=== PATIENT | male | born 1950 | race Caucasian/White ===

== ENCOUNTER 2017-10-17 16:15 | Inpatient (IN) | payer MEDICARE, OTHER ==
--- NOTE | 2017-10-17 16:35 | ED ---
General Adult HPI - General Stated complaint: Low O2 Time Seen by Provider: 10/17/17 16:22 Source: RN notes reviewed, old records reviewed - History of Present Illness Initial comments: This is a 67-year-old male who is ER for evaluation of shortness of breath altered mental state. Patient's poor strain, per EMS transfer paperwork patient was found to be severely hypoxic in the low 70s, patient is complaining of generalized pain pain all over. No noted fevers - Related Data Home Medications Medication Instructions Recorded Confirmed Febuxostat [Uloric] 80 mg PO DAILY 12/19/13 10/17/17 Finasteride [Proscar] 5 mg PO DAILY 12/19/13 10/17/17 Insulin Glargine [Lantus] 30 units SQ DAILY 12/19/13 10/17/17 Omeprazole [PriLOSEC] 20 mg PO DAILY 12/19/13 10/17/17 Potassium Chloride [Potassium 40 meq PO BID 12/19/13 10/17/17 Chloride ER] Pravastatin Sodium [Pravachol] 80 mg PO HS 12/19/13 10/17/17 Propranolol [Inderal] 20 mg PO BID 12/19/13 10/17/17 Rivaroxaban [Xarelto] 20 mg PO HS 12/19/13 10/17/17 Tamsulosin [Flomax] 0.8 mg PO HS 12/19/13 10/17/17 Cholecalciferol [Vitamin D3] 3,000 unit PO DAILY 02/17/14 10/17/17 Primidone [Mysoline] 100 mg PO DAILY 02/17/14 10/17/17 Sertraline [Zoloft] 75 mg PO DAILY 02/17/14 10/17/17 Spironolactone [Aldactone] 25 mg PO DAILY 05/21/14 10/17/17 Acetaminophen Tab [Tylenol Tab] 650 mg PO Q4H PRN 10/17/17 10/17/17 Albuterol Nebulized [Ventolin 2.5 mg INHALATION RT-TID PRN 10/17/17 10/17/17 Nebulized] Ammonium Lactate Lotion 1 applic TOPICAL BID PRN 10/17/17 10/17/17 [Lac-Hydrin 12% Lotion] Benzocaine/Menthol Lozeng [Cepacol 1 lozenge MUCOUS MEM TID PRN 10/17/17 lozenge] Bisacodyl [Dulcolax] 10 mg RECTAL DAILY PRN 10/17/17 10/17/17 Cephalexin [Keflex] 500 mg PO Q8H 10/17/17 10/17/17 Furosemide [Lasix] 80 mg PO BID 10/17/17 10/17/17 INSULIN LISPRO (HumaLOG) [HumaLOG] 24 units SQ AC-SUPPER 10/17/17 10/17/17 INSULIN LISPRO (humaLOG) [humaLOG] 14 units SQ AC-BID 10/17/17 10/17/17 Mag Hydrox/Al Hydrox/Simeth 30 ml PO Q6H PRN 10/17/17 10/17/17 [Maalox] Magnesium Hydroxide [Milk of 2,400 mg PO ONCE PRN 10/17/17 10/17/17 Magnesia] Menthol [Biofreeze] 1 applic TOPICAL Q8H PRN 10/17/17 10/17/17 Metolazone [Zaroxolyn] 2.5 mg PO DAILY 10/17/17 10/17/17 Na Phos,M-B/Na Phos,Di-Ba [Fleet 133 ml RECTAL ONCE PRN 10/17/17 10/17/17 Adult] Polyethylene Glycol 3350 [Miralax] 17 gm PO DAILY PRN 10/17/17 10/17/17 Primidone [Mysoline] 50 mg PO DAILY 10/17/17 10/17/17 Topiramate [Topamax] 50 mg PO BID 10/17/17 10/17/17 Triamcinolone 0.5% Cream [Kenalog 1 applic TOPICAL BID PRN 10/17/17 10/17/17 0.5% Cream] diphenhydrAMINE [Benadryl] 25 mg PO Q6H PRN 10/17/17 10/17/17 fentaNYL 12MCG/HR PATCH [Duragesic 1 patch TRANSDERM Q72H 10/17/17 10/17/17 12MCG/HR] guaiFENesin SYRUP 100MG/5ML 200 mg PO Q4H PRN 10/17/17 10/17/17 [Robitussin] oxyCODONE-APAP 10-325MG [Percocet 1 tab PO DAILY 10/17/17 10/17/17 10-325 mg] oxyCODONE-APAP 10-325MG [Percocet 1 tab PO Q4HR PRN 10/17/17 10/17/17 10-325 mg] Previous Rx's Medication Instructions Recorded Pregabalin [Lyrica] 100 mg PO BID #20 capsule 02/21/14 Allergies Allergy/AdvReac Type Severity Reaction Status Date / Time acetaminophen [From [place]] Allergy Rash/Hives Verified 10/17/17 16:20 cephalexin monohydrate Allergy Rash/Hives Verified 10/17/17 16:36 [From Keflex] codeine Allergy Nausea & Verified 10/17/17 16:36 Vomiting hydrocodone bitartrate Allergy Rash/Hives Verified 10/17/17 16:36 [From [place]] Latex, Natural Rubber Allergy Rash/Hives Verified 10/17/17 16:36 levofloxacin [From Levaquin] Allergy Rash/Hives Verified 10/17/17 16:36 morphine Allergy Confusion Verified 10/17/17 16:36 Penicillins Allergy Anaphylaxis Verified 10/17/17 16:36 Sulfa (Sulfonamide Allergy Anaphylaxis Verified 10/17/17 16:36 Antibiotics) bitartrate Allergy Unknown Uncoded 10/17/17 16:20 Review of Systems ROS Statement: Those systems with pertinent positive or pertinent negative responses have been documented in the HPI. ROS Other: All systems not noted in ROS Statement are negative. Past Medical History Past Medical History: Atrial Fibrillation, Heart Failure, COPD, Diabetes Mellitus, Hyperlipidemia, Hypertension, Myocardial Infarction ([place]), Osteoarthritis (OA), Prostate Disorder, Renal Disease, Skin Disorder Additional Past Medical History / Comment(s): multipleUTI's/BLADDER INFECTION,, parkinsons/ TREMORS,ECZEMA, HAD A ANEURYSYM IN BACK OF LEFT EYE HAD SX. Hx [place] 2007 and had PTCA with stents.Pt occasionally constipated.bph,duodenal ulcer,djd , Last Myocardial Infarction Date:: 2007 History of Any Multi-Drug Resistant Organisms: None Reported Past Surgical History: Coronary Bypass/CABG, Heart Catheterization With Stent, Hernia Repair, Joint Replacement, Tonsillectomy Additional Past Surgical History / Comment(s): triple bypass 2007 lt leg vein harvested got cabg. lt hip replacement.ganglion cyst removed rt wrist/neck. left hip replacement,TRIPLE BYPASS,ganglion cyst removed, lt leg vein harvested for cabg sx, Past Anesthesia/Blood Transfusion Reactions: Postoperative Nausea & Vomiting ( PONV) Additional Past Anesthesia/Blood Transfusion Reaction / Comment(s): no history of blood transfusion Date of Last Stent Placement:: 2007 Smoking Status: Former smoker - Past Family History Father Family Medical History: CVA/TIA Additional Family Medical History / Comment(s): Father at age 79. Mother Additional Family Medical History / Comment(s): Mother at age 82. Mother had TB 1n 1952. General Exam Limitations: altered mental status General appearance: alert, anxious, lethargic Head exam: Present: atraumatic, normocephalic, normal inspection Eye exam: Present: normal appearance, PERRL, EOMI. Absent: scleral icterus, conjunctival injection, periorbital swelling ENT exam: Present: normal exam, mucous membranes moist Neck exam: Present: normal inspection. Absent: tenderness, meningismus, lymphadenopathy Respiratory exam: Present: normal lung sounds bilaterally, wheezes, accessory muscle use, decreased breath sounds, prolonged expiratory. Absent: respiratory distress, rales, rhonchi, stridor Cardiovascular Exam: Present: regular rate, normal rhythm, normal heart sounds. Absent: systolic murmur, diastolic murmur, rubs, gallop, clicks GI/Abdominal exam: Present: soft, normal bowel sounds. Absent: distended, tenderness, guarding, rebound, rigid Extremities exam: Present: normal inspection, full ROM, normal capillary refill. Absent: tenderness, pedal edema, joint swelling, calf tenderness Back exam: Present: normal inspection Neurological exam: Present: alert, oriented X3, CN II-XII intact Psychiatric exam: Present: normal affect, normal mood Skin exam: Present: warm, dry, intact, normal color. Absent: rash Course Vital Signs 10/17/17 10/17/17 16:20 17:33 Temperature 98.0 F Pulse Rate 69 68 Respiratory 18 18 Rate Blood Pressure 109/77 105/60 O2 Sat by Pulse 90 L 98 Oximetry - Reevaluation(s) Reevaluation #1: 10/17/17 18:18 No significant improvement here in the ER EKG Findings - EKG Comments: EKG Findings:: EKG shows A. fib rate of 66, QRS 82, QTc 461 Medical Decision Making - Medical Decision Making 67 male the ER for evaluation of altered mental state, hypoxia per outpatient oxygen levels, placed on oxygen with improvement breathing treatment further improvement in oxygen state but continues remain altered. Will admit for treatment of COPD and hypoxia - Lab Data Result diagrams: 10/17/17 16:42 10/17/17 16:42 Lab Results 10/17/17 10/17/17 10/17/17 Range/Units 16:42 16:42 16:42 WBC 6.9 (3.8-10.6) k/uL RBC 5.15 (4.30-5.90) m/uL Hgb 16.7 (13.0-17.5) gm/dL Hct 49.3 (39.0-53.0) % MCV 95.7 (80.0-100.0) fL MCH 32.3 (25.0-35.0) pg MCHC 33.8 (31.0-37.0) g/dL RDW 13.4 (11.5-15.5) % Plt Count 163 (150-450) k/uL Neutrophils % 64 % Lymphocytes % 20 % Monocytes % 7 % Eosinophils % 4 % Basophils % 1 % Neutrophils # 4.4 (1.3-7.7) k/uL Lymphocytes # 1.4 (1.0-4.8) k/uL Monocytes # 0.5 (0-1.0) k/uL Eosinophils # 0.3 (0-0.7) k/uL Basophils # 0.0 (0-0.2) k/uL PT (9.0-12.0) sec INR (<1.2) APTT (22.0-30.0) sec Sodium (137-145) mmol/L Potassium (3.5-5.1) mmol/L Chloride (98-107) mmol/L Carbon Dioxide (22-30) mmol/L Anion Gap mmol/L BUN (9-20) mg/dL Creatinine (0.66-1.25) mg/dL Est GFR (CKD-EPI)AfAm (>60 ml/min/1.73 sqM) Est GFR (CKD-EPI)NonAf (>60 ml/min/1.73 sqM) Glucose (74-99) mg/dL Plasma Lactic Acid Juan 1.5 (0.7-2.0) mmol/L Calcium (8.4-10.2) mg/dL Phosphorus (2.5-4.5) mg/dL Magnesium (1.6-2.3) mg/dL Total Bilirubin (0.2-1.3) mg/dL AST (17-59) U/L ALT (21-72) U/L Alkaline Phosphatase (38-126) U/L Ammonia <9 (<30) umol/L Total Creatine Kinase 40 L (55-170) U/L CK-MB (CK-2) 0.5 (0.0-2.4) ng/mL CK-MB (CK-2) Rel Index 1.3 Troponin I <0.012 (0.000-0.034) ng/mL Total Protein (6.3-8.2) g/dL Albumin (3.5-5.0) g/dL Urine Color Urine Appearance (Clear) Urine pH (5.0-8.0) Ur Specific [place] (1.001-1.035) Urine Protein (Negative) Urine Glucose (UA) (Negative) Urine Ketones (Negative) Urine Blood (Negative) Urine Nitrite (Negative) Urine Bilirubin (Negative) Urine Urobilinogen (<2.0) mg/dL Ur Leukocyte Esterase (Negative) 10/17/17 10/17/17 10/17/17 Range/Units 16:42 16:42 16:56 WBC (3.8-10.6) k/uL RBC (4.30-5.90) m/uL Hgb (13.0-17.5) gm/dL Hct (39.0-53.0) % MCV (80.0-100.0) fL MCH (25.0-35.0) pg MCHC (31.0-37.0) g/dL RDW (11.5-15.5) % Plt Count (150-450) k/uL Neutrophils % % Lymphocytes % % Monocytes % % Eosinophils % % Basophils % % Neutrophils # (1.3-7.7) k/uL Lymphocytes # (1.0-4.8) k/uL Monocytes # (0-1.0) k/uL Eosinophils # (0-0.7) k/uL Basophils # (0-0.2) k/uL PT 12.5 H (9.0-12.0) sec INR 1.3 H (<1.2) APTT 29.9 (22.0-30.0) sec Sodium 143 (137-145) mmol/L Potassium 3.6 (3.5-5.1) mmol/L Chloride 87 L (98-107) mmol/L Carbon Dioxide 40 H* (22-30) mmol/L Anion Gap 16 mmol/L BUN 72 H (9-20) mg/dL Creatinine 1.62 H (0.66-1.25) mg/dL Est GFR (CKD-EPI)AfAm 49 (>60 ml/min/1.73 sqM) Est GFR (CKD-EPI)NonAf 43 (>60 ml/min/1.73 sqM) Glucose 143 H (74-99) mg/dL Plasma Lactic Acid Juan (0.7-2.0) mmol/L Calcium 9.8 (8.4-10.2) mg/dL Phosphorus 3.4 (2.5-4.5) mg/dL Magnesium 2.7 H (1.6-2.3) mg/dL Total Bilirubin 0.5 (0.2-1.3) mg/dL AST 18 (17-59) U/L ALT 14 L (21-72) U/L Alkaline Phosphatase 85 (38-126) U/L Ammonia (<30) umol/L Total Creatine Kinase (55-170) U/L CK-MB (CK-2) (0.0-2.4) ng/mL CK-MB (CK-2) Rel Index Troponin I (0.000-0.034) ng/mL Total Protein 7.2 (6.3-8.2) g/dL Albumin 4.1 (3.5-5.0) g/dL Urine Color Yellow Urine Appearance Clear (Clear) Urine pH 6.0 (5.0-8.0) Ur Specific [place] 1.008 (1.001-1.035) Urine Protein Negative (Negative) Urine Glucose (UA) Negative (Negative) Urine Ketones Negative (Negative) Urine Blood Negative (Negative) Urine Nitrite Negative (Negative) Urine Bilirubin Negative (Negative) Urine Urobilinogen <2.0 (<2.0) mg/dL Ur Leukocyte Esterase Negative (Negative) - Radiology Data Radiology results: report reviewed (Chest x-rays negative), image reviewed Disposition Clinical Impression: Atypical chest pain, COPD (chronic obstructive pulmonary disease), Hypoxia, Altered mental state Disposition: ADMITTED IP TO THIS HOSP Condition: Fair Is patient prescribed a controlled substance at d/c from ED?: No Referrals: Fabrizio Lange DO [Primary Care Provider] - 1-2 days
[2017-10-17 17:02] LABS: Basophils % (A) 1 %; Eosinophils # (A) 0.3 k/uL (0-0.7); Eosinophils % (A) 4 %; HCT 49.3 % (39.0-53.0); HGB 16.7 gm/dL (13.0-17.5); Lymphocytes # (A) 1.4 k/uL (1.0-4.8); Lymphocytes % (A) 20 %; MCH 32.3 pg (25.0-35.0); MCHC 33.8 g/dL (31.0-37.0); MCV 95.7 fL (80.0-100.0); Mean Platelet Volume 9.1; Monocytes # (A) 0.5 k/uL (0-1.0); Monocytes % (A) 7 %; Neutrophils # (A) 4.4 k/uL (1.3-7.7); Neutrophils % (A) 64 %; Platelet Count 163 k/uL (150-450); RBC 5.15 m/uL (4.30-5.90); RDW 13.4 % (11.5-15.5); WBC 6.9 k/uL (3.8-10.6)
[2017-10-17 17:03] LABS: Appearance,Urine Clear (Clear); Bilirubin,Urine Negative (Negative); Blood,Urine Negative (Negative); Color,Urine Yellow; Glucose,Urine (UA) Negative (Negative); Ketones,Urine Negative (Negative); Leukocyte Esterase,Urine Negative (Negative); Nitrite,Urine Negative (Negative); Protein,Urine Negative (Negative); Specific Gravity,Urine 1.008 (1.001-1.035); Urobilinogen,Urine <2.0 mg/dL (<2.0)
[2017-10-17 17:08] LABS: INR 1.3 (<1.2); Partial Thromboplastin Time 29.9 sec (22.0-30.0); Prothrombin Time 12.5 sec (9.0-12.0)
[2017-10-17 17:17] LABS: Potassium 3.6 mmol/L (3.5-5.1)
[2017-10-17 17:18] LABS: Albumin 4.1 g/dL (3.5-5.0); Ammonia <9 umol/L (<30); Calcium 9.8 mg/dL (8.4-10.2); Lactic Acid, Venous 1.5 mmol/L (0.7-2.0); Magnesium 2.7 mg/dL (1.6-2.3); Phosphorus 3.4 mg/dL (2.5-4.5); Total Bilirubin 0.5 mg/dL (0.2-1.3); Total Protein 7.2 g/dL (6.3-8.2)
--- NOTE | 2017-10-17 17:22 | XR ---
EXAMINATION TYPE: XR chest 2V DATE OF EXAM: 10/17/2017 COMPARISON: 05/21/2014 HISTORY: Weakness TECHNIQUE: Frontal and lateral views of the chest are obtained. FINDINGS: There is no heart failure nor confluent pneumonic infiltrate. There are sternal wires. Cos tophrenic angles are clear. Thoracic aorta is atheromatous. The bony thorax is intact. There are ches t leads. IMPRESSION: There is minimal subsegmental atelectasis in the right midlung that is new compared to o ld exam. Normal heart. No heart failure.
[2017-10-17 17:26] LABS: Creatine Kinase 40 U/L (55-170)
[2017-10-17 17:38] LABS: Creatine Kinase MB 0.5 ng/mL (0.0-2.4); Troponin I <0.012 ng/mL (0.000-0.034)
[2017-10-17] MEDS ORDERED: methylPREDNISolone SOD SUCCI 125 MG/2 ML VIAL IV STA (18:15)
[2017-10-17] MEDS ORDERED: SODIUM CHLORIDE 0.9% 1,000 ML IV SCH (18:15)
[2017-10-17] MEDS ORDERED: IPRATROPIUM-ALBUTEROL 3 ML NEB INHALATION STA (18:17)
[2017-10-17] MEDS: IPRATROPIUM-ALBUTEROL 3 ML NEB INHALATION SCH (19:07)
[2017-10-17] MEDS ORDERED: BISACODYL 10 MG SUPP RECTAL PRN (20:14)
[2017-10-17] MEDS ORDERED: ACETAMINOPHEN TAB 325 MG TAB PO PRN (20:14)
[2017-10-17] MEDS ORDERED: AMMONIUM LACTATE 12% LOTION 225 GM BTL TOPICAL PRN (20:14)
[2017-10-17] MEDS ORDERED: TRIAMCINOLONE ACET 0.5% CREAM 15 GM TUBE TOPICAL PRN (20:14)
[2017-10-17 20:42] LABS: Glucose,Whole Blood 152 mg/dL (75-99)
[2017-10-17] MEDS ORDERED: RIVAROXABAN 20 MG TAB PO SCH (21:00)
[2017-10-17] MEDS: LACTATED RINGERS 1,000 ML IV SCH (21:18)
[2017-10-17] MEDS: TAMSULOSIN 0.4 MG CAP.ER.24H PO SCH (21:21)
[2017-10-17] MEDS ORDERED: INSULIN DETEMIR 100 UNIT/ML 10 ML VIAL SQ SCH (21:30)
[2017-10-17] MEDS ORDERED: ONDANSETRON 4 MG/2 ML VIAL IVP PRN (22:05)
[2017-10-17] MEDS ORDERED: CALCIUM CARBONATE 500 MG CHEWABLE PO PRN (22:05)
[2017-10-17] MEDS ORDERED: NALOXONE 0.4 MG/ML 1 ML VIAL IV PRN (22:05)
[2017-10-17] MEDS: INSULIN DETEMIR 100 UNIT/ML 10 ML VIAL SQ SCH (22:49)
--- NOTE | 2017-10-17 23:12 | HP ---
HISTORY AND PHYSICAL PRESENTING COMPLAINT: Lethargic. HISTORY OF PRESENTING COMPLAINT: This 67-year-old patient of Dr. Lange, resident of [facility] with chronic stable medical conditions include CHF, diabetes, GERD, hypertension, hyperlipidemia, osteoarthritis, gout, Parkinson's, coronary artery disease, BPH, gout, neuropathy, anxiety, and depression. The patient was sent in from the [facility]. The patient was found to be lethargic and had a pulse ox recorded at 60%, but then with 2 L it came above 90. The patient's chest x-ray in the ER did not show any evidence of CHF. The patient is rather lethargic. Does wake up to pain. No other additional history can be obtained. The patient was given some IV steroids in the ER. REVIEW OF SYSTEMS: The patient is rather lethargic. Cannot be obtained. PAST MEDICAL HISTORY: Atrial fibrillation, CHF, COPD, diabetes, GERD, hypertension, hyperlipidemia, osteoarthritis, gout, Parkinson's, coronary artery disease with stent in 2007, BPH, duodenal ulcer, gout, peripheral neuropathy, anxiety, depression. PAST SURGICAL HISTORY: Coronary bypass, cardiac cath with stent, hernia repair, joint replacement, tonsillectomy, triple bypass in 2007, bilateral hip replacement, ganglion cyst removed. HOME MEDICATIONS: 1. Percocet 10 mg 1 tab daily and q.4h p.r.n. 2. Guaifenesin syrup. 3. Fentanyl 12 patch every 72 hours. 4. Benadryl 25 mg q.6h p.r.n. 5. Kenalog 0.5% topical b.i.d. p.r.n. 6. Topamax 50 mg b.i.d. 7. Flomax 0.8 mg q.h.s. 8. Aldactone 25 mg a day. 9. Zoloft 75 mg a day. 10.Xarelto 20 mg q.h.s. 11.Inderal 20 mg b.i.d. 12.Mysoline 150 mg p.o. daily. 13.Lyrica 100 mg b.i.d. 14.Pravachol 80 mg q.h.s. 15.Potassium 40 mEq p.o. b.i.d. 16.MiraLAX 17 g p.o. daily p.r.n. 17.Prilosec 20 mg p.o. daily. 18.Fleets adult p.r.n. 19.Zaroxolyn 2.5 p.o. daily. 20.Biofreeze topical p.r.n. 21.Milk of magnesia. 22.Maalox 30 mg q.6h p.r.n. 23.Lantus 30 units subcu q.h.s. 24.Humalog 14 units b.i.d. and 24 with supper. 25.Lasix 80 mg b.i.d. 26.Proscar 5 mg p.o. daily. 27. 80 mg p.o. daily. 28.Vitamin D3 2000 units at 5:00 p.m. 29.Keflex 100 mg t.i.d. 30.Dulcolax p.r.n. 31.Cepacol Lac-Hydrin 12% topical b.i.d. p.r.n. 32.Ventolin 2.5 q.8 p.r.n. 33.Tylenol 650 mg q.4 p.r.n. ALLERGIES: ACETAMINOPHEN, KEFLEX, CODEINE, NORCO, LATEX, LEVAQUIN, MORPHINE, PENICILLIN, SULFA, BITARTRATE. PHYSICAL EXAMINATION: On examination vital signs on presentation, temperature 98.8, pulse 69, respiratory 18, blood pressure 109/77, pulse ox 98% on room air. GENERAL APPEARANCE: Well-built. BMI 41.5. Lethargic but arousable. EYES: Pupils equal. Conjunctivae normal. HEENT: External appearance of nose and ears normal. Oral cavity a bit dry. NECK: Short, JVD unable to assess. Mass not palpable. RESPIRATORY: Effort increased. LUNGS: Decreased breath sounds. No wheezing. CARDIOVASCULAR: Heart sounds irregular, nonpitting edema. ABDOMEN: Soft, nontender. Liver and spleen not palpable. LYMPHATICS: No lymph node palpable in the neck or axillae. PSYCHIATRY: Unable to assess. The patient is lethargic. NEUROLOGICAL: Pupils equal. No facial asymmetry. There is no asymmetrical loss of power. Plantars are equivocal. INVESTIGATIONS: White count 6.9, hemoglobin 16.7, platelets 163,000. Potassium 3.6, bicarb is 40, BUN 72, creatinine 1.62, magnesium 2.7, ammonia less than 9. Chest x-ray nil acute. EKG atrial fibrillation, rate controlled. ASSESSMENT: 1. This patient presents and felt to be lethargic, which probably is metabolic encephalopathy from patient being dry. The patient's bicarb is up to 40. The patient is also on Lyrica and Duragesic patch that could be contributing to the same. The patient has no focal symptoms. 2. Persistent atrial fibrillation chronically on anticoagulation in form of Xarelto. 3. Chronic congestive heart failure, ejection fraction not known. 4. Chronic obstructive pulmonary disease. 5. Diabetes type 2, chronically on insulin. 6. Gastroesophageal reflux disease. 7. Essential hypertension. 8. Hyperlipidemia. 9. Primary osteoarthritis. 10.Chronic gout. 11.Parkinson's disease. 12.Coronary artery disease with coronary bypass in 2007. 13.Benign prostatic hypertrophy. 14.Chronic gout. 15.Peripheral neuropathy from diabetes. 16.Anxiety, depression, not otherwise specified. 17.Morbid obesity, BMI 41.5. PLAN: At this point we will stop the patient's Solu-Medrol. We will hold off any Percocet. We will discontinue the Duragesic patch. In view of renal failure, this could be contributing. We will also stop the patient's Benadryl. The patient's Percocet, fentanyl and Benadryl have been discontinued. We will also hold off patient's diuretics including his Aldactone and Lasix. We will resume the patient's Lantus, although cut back the dose to 20 units and do sliding scale. We will do a CT scan of the brain to make sure there is no acute abnormality, although there is no focal symptoms. We will do fall precautions, neuro checks and keep an eye. There is no evidence of seizures. Given his age and multiple comorbidities, the patient's prognosis is guarded. MMODL / IJN: [id number] /
--- NOTE | 2017-10-17 23:49 | CT ---
EXAMINATION TYPE: CT brain wo con DATE OF EXAM: 10/17/2017 COMPARISON: NONE HISTORY: Lethargic. CT DLP: 1129.1 mGycm Automated exposure control for dose reduction was used. FINDINGS: There is cerebral cortical atrophy. There is no mass effect nor midline shift. There is no sign of in tracranial hemorrhage. The calvarium is intact. There is some white matter hypodensity in the left po sterior parietal lobe. IMPRESSION: CEREBRAL ATROPHY. NO ACUTE INTRACRANIAL ABNORMALITY. OLD LEFT POSTERIOR PARIETAL WHITE MATTER LACUNAR INFARCT. THIS MEASURES 2 X 1 CM.
[2017-10-18] MEDS ORDERED: methylPREDNISolone SOD SUCCI 125 MG/2 ML VIAL IV SCH
--- NOTE | 2017-10-18 00:05 | US ---
EXAMINATION TYPE: US venous doppler duplex LE DATE OF EXAM: 10/17/2017 11:02 PM COMPARISON: NONE CLINICAL HISTORY: r/o dvt. Bilateral leg swelling. SIDE PERFORMED: Bilateral TECHNIQUE: The lower extremity deep venous system is examined utilizing real time linear array sonog yaima with graded compression, doppler sonography and color-flow sonography. VESSELS IMAGED: External Iliac Vein (EIV) Common Femoral Vein Deep Femoral Vein Greater Saphenous Vein * Femoral Vein Popliteal Vein Exam limitations due to body habitus and unable to roll left leg. Right Leg: Negative for DVT Left Leg: Negative for DVT No evidence of DVT bilateral legs. IMPRESSION: Negative exam. No evidence of deep venous thrombosis in both legs.
[2017-10-18 06:18] LABS: Hemoglobin A1C 6.3 % (4.0-6.0)
[2017-10-18] MEDS: PANTOPRAZOLE 40 MG TABLET PO SCH (06:18)
[2017-10-18 06:58] LABS: Glucose,Whole Blood 213 mg/dL (75-99)
[2017-10-18 07:28] LABS: Creatine Kinase MB 0.4 ng/mL (0.0-2.4); Troponin I 0.015 ng/mL (0.000-0.034)
[2017-10-18] MEDS: INSULIN ASPART 100 UNIT/ML 1 ML 10 ML VIAL SQ SCH ×6 (07:44→17:56)
[2017-10-18] MEDS: TOPIRAMATE 25 MG TAB PO SCH ×2 (07:45→16:13)
[2017-10-18] MEDS: PREGABALIN 50 MG CAP PO SCH ×2 (07:45→16:13)
[2017-10-18] MEDS: FINASTERIDE 5 MG TAB PO SCH (07:45)
[2017-10-18] MEDS: PRIMIDONE 50 MG TAB PO SCH ×2 (07:45→16:13)
[2017-10-18] MEDS: PROPRANOLOL 20 MG TAB PO SCH ×2 (07:45→16:13)
[2017-10-18] MEDS: ALLOPURINOL 100 MG TAB PO SCH (07:45)
[2017-10-18] MEDS: SERTRALINE 25 MG TAB PO SCH (07:46)
[2017-10-18] MEDS ORDERED: PREGABALIN 100 MG CAP PO SCH (08:00)
[2017-10-18] MEDS: IPRATROPIUM-ALBUTEROL 3 ML NEB INHALATION SCH ×5 (08:46→20:17)
[2017-10-18] MEDS ORDERED: ALLOPURINOL 100 MG TAB PO SCH (09:00)
[2017-10-18] MEDS: oxyCODONE-APAP 10-325MG 1 EACH TAB PO PRN (10:04)
[2017-10-18 11:12] VITALS: BMI 36.1
[2017-10-18 11:36] LABS: Glucose,Whole Blood 338 mg/dL (75-99)
[2017-10-18] MEDS: LACTATED RINGERS 1,000 ML IV SCH ×2 (12:29→22:48)
--- NOTE | 2017-10-18 13:59 | P.CRDCN ---
History of Present Illness Consult date: 10/18/17 History of present illness: Mr. Cornell is a pleasant 67-year-old female past medical history significant for chronic persistent atrial fibrillaiton, coronary artery disease with subsequent bypass grafting, COPD, parkinsons, chronic lower extremity lymphedema, bed-ridden, diabetes mellitus, dyslipidemia, hypertension, gout and chronic kidney disease. He sees Dr. Velazquez in the office. We have been asked to see him in consultation for a run of non-sustained ventricular tachycardia. Telemetry tracings reviewed in the chart reveal what appears to be non- sustained VT, however when evaluating the full disclosure it appears to be artifact with no consistency through all precordial leads. The patient himself is somewhat of a poor historian. Documentation in the chart shows that he was undergoing a bladder scan and straight cath procedure at the time of the artifact. He denies symptoms of chest pain, shortness of breath, palpitations, dizziness, nausea, vomiting or diaphoresis. He is admitted to the hospital with acute metabolic encephalopathy. EKG is atrial fibrillation with nonspecifc changes and controlled ventricular response. Chest xray shows minimal atelectasis right mid-lung with no acute process and no heart failure. Brain CT shows cerebral atrophy with no acute process or abnormality with old lacunar infarct. Laboratory data reviewed, hemoglobin 16.7, platelets 163, sodium 143, potassium 3.6, CO2 40, creatinine 1.62, GFR 43, magnesium 2.7, cardiac enzymes negative 3. Current cardiac medications include Aldactone 25 mg daily, Xarelto 20 mg daily, propanolol 20 mg twice a day, pravastatin 80 mg daily, potassium supplementation 40 twice a day and Lasix 80 mg twice a day. Review of Systems At the time of my exam: CONSTITUTIONAL: Denies fever. Denies chills. EYES: Denies blurred vision. Denies vision changes. Denies eye pain. EARS, NOSE, MOUTH & THROAT: Denies headache. Denies sore throat. Denies ear pain. CARDIOVASCULAR: Denies chest pain. Denies shortness of breath. Denies orthopnea. Denies PND. Denies palpitations. RESPIRATORY: Denies cough. GASTROINTESTINAL: Denies abdominal pain. Denies diarrhea. Denies constipation. Denies nausea. Denies vomiting. MUSCULOSKELETAL: Denies myalgias. INTEGUMENTARY: Denies pruitis. Denies rash. NEUROLOGIC: Denies numbness. Denies tingling. Denies weakness. PSYCHIATRIC: Denies anxiety. Denies depression. ENDOCRINE: Denies fatigue. Denies weight change. Denies polydipsia. Denies polyurina. GENITOURINARY: Denies burning, hematuria or urgency with micturation. HEMATOLOGIC: Denies history of anemia. Denies bleeding. Past Medical History Past Medical History: Atrial Fibrillation, Heart Failure, COPD, Diabetes Mellitus, GERD/Reflux, Hyperlipidemia, Hypertension, Myocardial Infarction ([place]) , Osteoarthritis (OA), Prostate Disorder, Renal Disease, Skin Disorder Additional Past Medical History / Comment(s): gout multipleUTI's/BLADDER INFECTION,,parkinsons/ TREMORS,ECZEMA, HAD A ANEURYSYM IN BACK OF LEFT EYE HAD SX. Hx [place] 2007 and had PTCA with stents.Pt occasionally constipated.bph, duodenal ulcer,djd,gout,neuropathy Last Myocardial Infarction Date:: 2007 History of Any Multi-Drug Resistant Organisms: None Reported Past Surgical History: Coronary Bypass/CABG, Heart Catheterization With Stent, Hernia Repair, Joint Replacement, Tonsillectomy Additional Past Surgical History / Comment(s): triple bypass 2007 lt leg vein harvested got cabg. stevenson hip replacement.ganglion cyst removed rt wrist/neck.egd, . left hip replacement,TRIPLE BYPASS,ganglion cyst removed, lt leg vein harvested for cabg sx, Past Anesthesia/Blood Transfusion Reactions: Postoperative Nausea & Vomiting ( PONV) Additional Past Anesthesia/Blood Transfusion Reaction / Comment(s): no history of blood transfusion Date of Last Stent Placement:: 2007 Smoking Status: Former smoker - Past Family History Father Family Medical History: CVA/TIA Additional Family Medical History / Comment(s): Father at age 79. Mother Additional Family Medical History / Comment(s): Mother at age 82. Mother had TB 1n 1952. Medications and Allergies Home Medications Medication Instructions Recorded Confirmed Type Febuxostat [Uloric] 80 mg PO DAILY 12/19/13 10/17/17 History Finasteride [Proscar] 5 mg PO DAILY 12/19/13 10/17/17 History Insulin Glargine [Lantus] 30 units SQ HS@2130 12/19/13 10/17/17 History Omeprazole [PriLOSEC] 20 mg PO DAILY@0600 12/19/13 10/17/17 History Potassium Chloride [Potassium 40 meq PO BID 12/19/13 10/17/17 History Chloride ER] Pravastatin Sodium [Pravachol] 80 mg PO HS 12/19/13 10/17/17 History Propranolol [Inderal] 20 mg PO BID@08,17 12/19/13 10/17/17 History Rivaroxaban [Xarelto] 20 mg PO HS 12/19/13 10/17/17 History Tamsulosin [Flomax] 0.8 mg PO HS 12/19/13 10/17/17 History Cholecalciferol [Vitamin D3] 3,000 unit PO DAILY@1700 02/17/14 10/17/17 History Primidone [Mysoline] 100 mg PO DAILY 02/17/14 10/17/17 History Sertraline [Zoloft] 75 mg PO DAILY 02/17/14 10/17/17 History Spironolactone [Aldactone] 25 mg PO DAILY 05/21/14 10/17/17 History Acetaminophen Tab [Tylenol Tab] 650 mg PO Q4H PRN 10/17/17 10/17/17 History Albuterol Nebulized [Ventolin 2.5 mg INHALATION RT-Q8H PRN 10/17/17 10/17/17 History Nebulized] Ammonium Lactate Lotion 1 applic TOPICAL BID PRN 10/17/17 10/17/17 History [Lac-Hydrin 12% Lotion] Benzocaine/Menthol Lozeng [Cepacol 1 lozenge MUCOUS MEM TID PRN 10/17/17 History lozenge] Bisacodyl [Dulcolax] 10 mg RECTAL DAILY PRN 10/17/17 10/17/17 History Cephalexin [Keflex] 500 mg PO TID@06,14,10/17/17 10/17/17 History Furosemide [Lasix] 80 mg PO BID@,17 10/17/17 10/17/17 History INSULIN LISPRO (HumaLOG) [HumaLOG] 24 units SQ AC-SUPPER@1730 10/17/17 10/17/17 History INSULIN LISPRO (humaLOG) [humaLOG] 14 units SQ AC-BID@08,12 10/17/17 10/17/17 History Mag Hydrox/Al Hydrox/Simeth 30 ml PO Q6H PRN 10/17/17 10/17/17 History [Maalox] Magnesium Hydroxide [Milk of 2,400 mg PO ONCE PRN 10/17/17 10/17/17 History Magnesia] Menthol [Biofreeze] 1 applic TOPICAL Q8H PRN 10/17/17 10/17/17 History Metolazone [Zaroxolyn] 2.5 mg PO DAILY@0600 10/17/17 10/17/17 History Na Phos,M-B/Na Phos,Di-Ba [Fleet 133 ml RECTAL ONCE PRN 10/17/17 10/17/17 History Adult] Polyethylene Glycol 3350 [Miralax] 17 gm PO DAILY PRN 10/17/17 10/17/17 History Pregabalin [Lyrica] 100 mg PO BID@,10/17/17 10/17/17 History Primidone [Mysoline] 50 mg PO DAILY 10/17/17 10/17/17 History Topiramate [Topamax] 50 mg PO BID@,10/17/17 10/17/17 History Triamcinolone 0.5% Cream [Kenalog 1 applic TOPICAL BID PRN 10/17/17 10/17/17 History 0.5% Cream] diphenhydrAMINE [Benadryl] 25 mg PO Q6H PRN 10/17/17 10/17/17 History fentaNYL 12MCG/HR PATCH [Duragesic 1 patch TRANSDERM Q72H 10/17/17 10/17/17 History 12MCG/HR] guaiFENesin SYRUP 100MG/5ML 200 mg PO Q4H PRN 10/17/17 10/17/17 History [Robitussin] oxyCODONE-APAP 10-325MG [Percocet 1 tab PO DAILY 10/17/17 10/17/17 History 10-325 mg] oxyCODONE-APAP 10-325MG [Percocet 1 tab PO Q4HR PRN 10/17/17 10/17/17 History 10-325 mg] Allergies Allergy/AdvReac Type Severity Reaction Status Date / Time acetaminophen [From Tow] Allergy Rash/Hives Verified 10/18/17 04:50 cephalexin monohydrate Allergy Rash/Hives Verified 10/18/17 04:50 [From Keflex] codeine Allergy Nausea & Verified 10/18/17 04:50 Vomiting hydrocodone bitartrate Allergy Rash/Hives Verified 10/18/17 04:50 [From Tow] Latex, Natural Rubber Allergy Rash/Hives Verified 10/18/17 04:50 levofloxacin [From Levaquin] Allergy Rash/Hives Verified 10/18/17 04:50 morphine Allergy Confusion Verified 10/18/17 04:50 Penicillins Allergy Anaphylaxis Verified 10/18/17 04:50 Sulfa (Sulfonamide Allergy Anaphylaxis Verified 10/18/17 04:50 Antibiotics) bitartrate Allergy Unknown Uncoded 10/18/17 04:50 Physical Exam Vitals: Vital Signs Temp Pulse Pulse Resp BP BP Pulse Ox 10/18/17 05:40 98.4 F 72 16 110/67 94 L 10/17/17 22:50 96.8 F L 65 16 107/67 97 10/17/17 21:37 95 10/17/17 21:35 92 L 10/17/17 21:30 97 10/17/17 21:29 100 10/17/17 19:15 96.2 F L 72 16 140/81 99 10/17/17 18:47 62 16 10/17/17 18:42 98 F 69 18 129/87 96 10/17/17 18:35 59 L 14 10/17/17 18:24 58 L 16 96 10/17/17 17:33 68 18 105/60 98 10/17/17 16:20 98.0 F 69 18 109/77 90 L Intake and Output 10/17/17 10/18/17 10/18/17 22:59 06:59 14:59 Output Total 500 Balance -500 Output: Urine 500 Other: Voiding Method Diaper Incontinent # Voids 0 0 Weight 109.769 kg 95.5 kg 95.5 kg Blood pressure 110/67 heart rate 72 afebrile maintaining oxygen saturation on nasal cannula GENERAL: This is a 67-year-old male in no apparent distress at the time of my examination. HEENT: Head is atraumatic, normocephalic. Pupils are equal, round. Sclerae anicteric. Conjunctivae are clear. Mucous membranes of the mouth are moist. Neck is supple. There is no jugular venous distention. No carotid bruit is heard. LUNGS: Clear to auscultation no wheezes, rales or rhonchi. No chest wall tenderness is noted on palpation or with deep breathing. Diminished bilaterally. HEART: Irregular rate and rhythm without murmurs, rubs or gallops. S1 and S2 heard. ABDOMEN: Soft, nontender. Bowel sounds are heard. No organomegaly noted. EXTREMITIES: Bilateral lower extremity edema and no calf tenderness noted. VASCULAR: Radial and dorsalis pedis pulses palpated, no evidence of clubbing. NEUROLOGIC: Patient is awake, alert and oriented x3. Poor historian. Results 10/17/17 16:42 10/17/17 16:42 Cardiac Enzymes 10/17/17 10/17/17 10/18/17 Range/Units 16:42 16:42 06:38 AST 18 (17-59) U/L CK-MB (CK-2) 0.5 0.4 (0.0-2.4) ng/mL Troponin I <0.012 0.015 (0.000-0.034) ng/mL Coagulation 10/17/17 Range/Units 16:42 PT 12.5 H (9.0-12.0) sec APTT 29.9 (22.0-30.0) sec CBC 10/17/17 Range/Units 16:42 WBC 6.9 (3.8-10.6) k/uL RBC 5.15 (4.30-5.90) m/uL Hgb 16.7 (13.0-17.5) gm/dL Hct 49.3 (39.0-53.0) % Plt Count 163 (150-450) k/uL Comprehensive Metabolic Panel 10/17/17 Range/Units 16:42 Sodium 143 (137-145) mmol/L Potassium 3.6 (3.5-5.1) mmol/L Chloride 87 L (98-107) mmol/L Carbon Dioxide 40 H* (22-30) mmol/L BUN 72 H (9-20) mg/dL Creatinine 1.62 H (0.66-1.25) mg/dL Glucose 143 H (74-99) mg/dL Calcium 9.8 (8.4-10.2) mg/dL AST 18 (17-59) U/L ALT 14 L (21-72) U/L Alkaline Phosphatase 85 (38-126) U/L Total Protein 7.2 (6.3-8.2) g/dL Albumin 4.1 (3.5-5.0) g/dL Current Medications Generic Name Dose Route Start Last Admin Trade Name Freq PRN Reason Stop Dose Admin Acetaminophen 650 mg 10/17/17 20:14 Tylenol Tab PO Q4H PRN Fever and/ or Mild Pain Albuterol/Ipratropium 3 ml 10/17/17 20:00 10/18/17 11:42 Duoneb 0.5 Mg-3 Mg/3 Ml Soln INHALATION Not Given RT-QID MIKA Allopurinol 100 mg 10/18/17 09:00 10/18/17 07:45 Zyloprim PO 100 mg DAILY MIKA Administration Bisacodyl 10 mg 10/17/17 20:14 Dulcolax RECTAL DAILY PRN Constipation Calcium Carbonate/Glycine 1,000 mg 10/17/17 22:05 Tums PO Q4HR PRN Dyspepsia Finasteride 5 mg 10/18/17 09:00 10/18/17 07:45 Proscar PO 5 mg DAILY MIKA Administration Lactated Ringer's 1,000 mls @ 75 mls/hr 10/17/17 20:30 10/18/17 12:29 Lactated Ringers IV Not Given .[id number] ON LICENSE OF [facility] Insulin Aspart 14 unit 10/18/17 08:00 10/18/17 12:41 Novolog SQ 14 unit AC-BID@08,12 MIKA Administration Insulin Aspart 24 unit 10/18/17 17:30 Novolog SQ AC-SUPPER@1730 ON LICENSE OF [facility] Insulin Aspart 0 unit 10/18/17 07:30 10/18/17 12:41 Novolog SQ 9 unit AC-TID ON LICENSE OF [facility] Administration Protocol Insulin Detemir 20 unit 10/17/17 22:00 10/17/17 22:49 Levemir SQ Not Given HS ON LICENSE OF [facility] Lactic Acid 1 applic 10/17/17 20:14 Lac-Hydrin 12% TOPICAL BID PRN Dry Skin Naloxone HCl 0.2 mg 10/17/17 22:05 Narcan IV Q2M PRN Opioid Reversal Ondansetron HCl 4 mg 10/17/17 22:05 Zofran IVP Q8HR PRN Nausea And Vomiting Oxycodone/Acetaminophen 1 each 10/17/17 20:14 10/18/17 10:04 Percocet 10-325 PO 1 each Q4HR PRN Administration Severe Pain Pantoprazole Sodium 40 mg 10/18/17 06:00 10/18/17 06:18 Protonix PO 40 mg DAILY@0600 MIKA Administration Pregabalin 50 mg 10/18/17 08:00 10/18/17 07:45 Lyrica PO 50 mg BID@, MIKA Administration Primidone 50 mg 10/18/17 09:00 10/18/17 07:45 Mysoline PO 50 mg DAILY MIAK Administration Primidone 100 mg 10/18/17 17:00 Mysoline PO DAILY@1700 ON LICENSE OF [facility] Propranolol HCl 20 mg 10/18/17 08:00 10/18/17 07:45 Inderal PO 20 mg BID@ MIKA Administration Rivaroxaban 20 mg 10/17/17 21:00 10/17/17 21:21 Xarelto PO 20 mg HS MIKA Administration Sertraline HCl 75 mg 10/18/17 09:00 10/18/17 07:46 Zoloft PO 75 mg DAILY MIKA Administration Tamsulosin HCl 0.8 mg 10/17/17 21:00 10/17/17 21:21 Flomax PO 0.8 mg HS MIKA Administration Topiramate 50 mg 10/18/17 08:00 10/18/17 07:45 Topamax PO 50 mg BID@ ON LICENSE OF [facility] Administration Triamcinolone Acetonide 1 applic 10/17/17 20:14 Kenalog 0.5% Cream TOPICAL BID PRN Rash Intake and Output 10/17/17 10/18/17 10/18/17 22:59 06:59 14:59 Output Total 500 Balance -500 Output: Urine 500 Other: Voiding Method Diaper Incontinent # Voids 0 0 Weight 109.769 kg 95.5 kg 95.5 kg Patient Weight 10/19/17 06:59 Weight 95.5 kg 10/17/17 16:42 10/17/17 16:42 Assessment and Plan Assessment: ASSESSMENT 1. Metabolic encephalopathy 2. History of coronary artery disease s/p bypass grafting 3. Chronic persistent atrial fibrillation with controlled ventricular response on long-term anticoagulation with Xarelto 4. Hypertension 5. Dyslipidemia 6. Chronic b/l lower extremity lymphedema 7. Multiple co-morbid conditions. PLAN No evidence of ventricular tachycardia. Continue with medical therapy. Thank you kindly for this consultation. We will see the patient as needed. Nurse Practitioner note has been reviewed, I agree with a documented findings and plan of care. Patient was seen and examined.
--- NOTE | 2017-10-18 15:56 | ECHOF ---
Referral Reason:sob MEASUREMENTS -------- HEIGHT: 162.6 cm WEIGHT: 95.3 kg BP: 110/67 RVIDd: 2.9 cm (< 3.3) IVSd: 1.0 cm (0.6 - 1.1) LVIDd: 2.8 cm (3.9 - 5.3) LVPWd: 1.0 cm (0.6 - 1.1) IVSs: 1.3 cm LVIDs: 1.8 cm LVPWs: 1.3 cm LAESV Index (A-L): 31.71 ml/m Ao Diam: 3.2 cm (2.0 - 3.7) AV Cusp: 1.5 cm (1.5 - 2.6) LA Diam: 5.1 cm (2.7 - 3.8) MV E Ashish: 1.03 m/s MV DecT: 248 ms MV A Ashish: 0.00 m/s MV E/A Ratio: 440.75 RAP: 5.00 mmHg RVSP: 8.80 mmHg FINDINGS -------- Undetermined rhythm. This was a technically difficult study with suboptimal views. The left ventricular size is normal. Left ventricular wall thickness is normal. Overall left vent ricular systolic function is normal with, an EF between 55 - 60 %. The right ventricle is normal in size and function. Normal LA size by volume 22+/-6 ml/m2. The right atrium was not well visualized. 3ml of Lumason was utilized for enhancement of images. There is mild aortic valve sclerosis. There is no evidence of aortic regurgitation. There is no e vidence of aortic stenosis. The mitral valve was not well visualized. There is trace mitral regurgitation. Trace tricuspid regurgitation present. Right ventricular systolic pressure is normal at < 35 mmHg. There is no evidence of pulmonary hypertension. The pulmonic valve was not well visualized. The aortic root size is normal. Normal inferior vena cava with normal inspiratory collapse consistent with estimated right atrial pre ssure of 5 mmHg. There is no pericardial effusion. CONCLUSIONS -------- 1. Undetermined rhythm. 2. This was a technically difficult study with suboptimal views. 3. The left ventricular size is normal. 4. Left ventricular wall thickness is normal. 5. Overall left ventricular systolic function is normal with, an EF between 55 - 60 %. 6. Normal LA size by volume 22+/-6 ml/m2. 7. The right atrium was not well visualized. 8. 3ml of Lumason was utilized for enhancement of images. 9. There is mild aortic valve sclerosis. 10. The mitral valve was not well visualized. 11. There is trace mitral regurgitation. 12. Trace tricuspid regurgitation present. 13. Right ventricular systolic pressure is normal at < 35 mmHg. 14. There is no evidence of pulmonary hypertension. 15. The pulmonic valve was not well visualized. 16. The aortic root size is normal. 17. There is no pericardial effusion. PUBLIC INTERVIEWER: Trino Pruitt RDCS
[2017-10-18 17:32] LABS: Glucose,Whole Blood 227 mg/dL (75-99)
--- NOTE | 2017-10-18 20:13 | PN ---
PROGRESS NOTE DATE OF SERVICE: 10/18/2017 PRESENTING COMPLAINT: Lethargic. INTERVAL HISTORY: This patient presented with metabolic encephalopathy, acute renal failure. Patient's diuretics and pain medication, etc., were discontinued. When I saw the patient this morning he was actually a bit more awake, answering questions though tired. REVIEW OF SYSTEMS: Done for constitutional, cardiovascular, GI, pulmonary; relevant findings as above. Patient currently denies any pain. PHYSICAL EXAMINATION: Temperature 98.4, pulse 72, respiration 16, blood pressure 110/67, pulse ox 94% on 3 L. GENERAL APPEARANCE: Sitting up, more awake, less lethargic today. EYES: Pupils equal. Conjunctivae normal. HEENT: External appearance of nose and ears normal. Oral cavity a bit dry. NECK: JVD unable to assess. Mass not palpable. RESPIRATORY: Effort normal. LUNGS: Diminished breath sounds. CARDIOVASCULAR: Heart sounds irregular. Legs are swollen, but most of it appears to be non-pitting. PSYCHIATRY: Patient is able to answer some simple questions. INVESTIGATIONS: Accu-Cheks are noted. Magnesium 2.7. ASSESSMENT: 1. Acute metabolic encephalopathy, multifactorial, including from medications in a setting of renal failure, slow to respond. 2. Persistent atrial fibrillation, chronically on anticoagulation with Xarelto. 3. Chronic congestive heart failure, ejection fraction 55% to 60% per echocardiogram. 4. Chronic obstructive pulmonary disease. 5. Diabetes mellitus, type 2, chronically on insulin. 6. Gastroesophageal reflux disease. 7. Essential hypertension. 8. Hyperlipidemia. 9. Primary osteoarthritis. 10.Chronic gout. 11.Parkinson disease. 12.Coronary artery disease with coronary artery bypass in 2007. 13.Benign prostatic hypertrophy. 14.Peripheral neuropathy from diabetes. 15.Anxiety, depression not otherwise specified. 16.Morbid obesity with body mass index of 41.5. PLAN: Encourage oral intake. Will await BMP from today. Continue with gentle hydration. Keep an eye on the Accu-Cheks. MMODL / IJN: [id number] /
[2017-10-18 21:18] LABS: Calcium 9.7 mg/dL (8.4-10.2); Potassium 3.3 mmol/L (3.5-5.1)
[2017-10-18 22:04] LABS: Glucose,Whole Blood 164 mg/dL (75-99)
[2017-10-18] MEDS: INSULIN DETEMIR 100 UNIT/ML 10 ML VIAL SQ SCH (22:46)
[2017-10-18] MEDS: TAMSULOSIN 0.4 MG CAP.ER.24H PO SCH (22:47)
[2017-10-18] MEDS: RIVAROXABAN 15 MG TAB PO SCH (22:47)
[2017-10-19] MEDS: PANTOPRAZOLE 40 MG TABLET PO SCH (06:38)
[2017-10-19 07:29] LABS: Glucose,Whole Blood 101 mg/dL (75-99)
[2017-10-19] MEDS: INSULIN ASPART 100 UNIT/ML 1 ML 10 ML VIAL SQ SCH ×6 (07:30→17:40)
[2017-10-19] MEDS: IPRATROPIUM-ALBUTEROL 3 ML NEB INHALATION SCH ×5 (07:34→19:56)
[2017-10-19] MEDS: PRIMIDONE 50 MG TAB PO SCH ×2 (08:16→17:40)
[2017-10-19] MEDS: SERTRALINE 25 MG TAB PO SCH (08:16)
[2017-10-19] MEDS: ALLOPURINOL 100 MG TAB PO SCH (08:16)
[2017-10-19] MEDS: FINASTERIDE 5 MG TAB PO SCH (08:16)
[2017-10-19] MEDS: TOPIRAMATE 25 MG TAB PO SCH ×2 (08:16→17:40)
[2017-10-19] MEDS: PREGABALIN 50 MG CAP PO SCH ×2 (08:17→17:40)
[2017-10-19] MEDS: PROPRANOLOL 20 MG TAB PO SCH ×2 (08:17→17:40)
[2017-10-19 12:30] LABS: Glucose,Whole Blood 126 mg/dL (75-99)
[2017-10-19 12:39] LABS: Calcium 9.5 mg/dL (8.4-10.2)
[2017-10-19] MEDS ORDERED: Potassium Replacement Protocol 1 EACH MISC MISCELLANE PRN (13:10)
[2017-10-19] MEDS ORDERED: POTASSIUM CHLORIDE 10 MEQ in WATER FOR INJECTION 1 100ML.BAG IVPB SCH (13:15)
[2017-10-19] MEDS ORDERED: POTASSIUM CHLORIDE ER 20 MEQ TAB.ER PO STA (13:22)
[2017-10-19] MEDS: LACTATED RINGERS 1,000 ML IV SCH ×2 (14:09→18:12)
[2017-10-19] MEDS ORDERED: FUROSEMIDE 80 MG TAB PO SCH (16:30)
[2017-10-19 16:51] LABS: Glucose,Whole Blood 226 mg/dL (75-99)
--- NOTE | 2017-10-19 17:17 | PN ---
PROGRESS NOTE DATE OF SERVICE: October 19, 2017. PRESENTING COMPLAINT: Encephalopathy. INTERVAL HISTORY: This patient presented with encephalopathy from acute renal failure and medications. Diuretics were held. The patient is getting hydrated. The patient is more awake today. The patient legal guardian Gee Douglsa is here today. I spoke to him. The patient is looking better. Answering questions more appropriately. Did tolerate some diet. REVIEW OF SYSTEMS: Done for constitutional, cardiovascular, GI, pulmonary; relevant findings as above. CURRENT MEDICATIONS: Reviewed. EXAMINATION: Temperature 96.6, pulse 54, respirations 16, blood pressure 100/55, pulse ox 95% on 3 L. GENERAL APPEARANCE: Lying in bed, more awake today. EYES: Pupils are equal. Conjunctivae normal. HEENT: External appearance of nose and ears normal. Oral cavity normal. Neck: JVD unable to assess. Mass not palpable. Respiratory effort: Lungs decreased breath sounds. Cardiovascular: HEART: Sounds irregular. Mild edema present, including mainly nonpitting. Psychiatry: Answering questions more appropriately today. The patient could tell he is in the hospital, knows the year and the month. INVESTIGATIONS: Potassium 3, BUN 70, creatinine 1.35, bicarb is 35. ASSESSMENT: 1. Acute metabolic encephalopathy, multifactorial including from medications in the setting of renal failure improving. 2. Persistent atrial fibrillation chronically on anticoagulation Xarelto. 3. Chronic congestive heart failure. Ejection fraction 55-60% per echocardiogram. 4. Chronic obstructive pulmonary disease. 5. Diabetes mellitus type 2, chronically on insulin. 6. Gastroesophageal reflux disease. 7. Essential hypertension. 8. Hyperlipidemia. 9. Primary osteoarthritis. 10.Chronic gout. 11.Parkinson disease. 12.Coronary artery disease with history of coronary artery bypass 2007. 13.Benign prostatic hypertrophy. 14.Peripheral neuropathy from diabetes. 15.Anxiety, depression not otherwise specified. 16.Morbid obesity with a body mass index of 41.5. PLAN: At this point, we will continue to hydrate the patient. We will use Konrad wraps. The patient probably has an element of venous insufficiency. Care was discussed with the legal guardian at the bedside. We will replace patient's potassium. MMODL / IJN: [id number] /
[2017-10-19] MEDS: RIVAROXABAN 15 MG TAB PO SCH (21:38)
[2017-10-19] MEDS: TAMSULOSIN 0.4 MG CAP.ER.24H PO SCH (21:38)
[2017-10-19] MEDS: INSULIN DETEMIR 100 UNIT/ML 10 ML VIAL SQ SCH (21:39)
[2017-10-19 21:43] LABS: Glucose,Whole Blood 222 mg/dL (75-99)
[2017-10-20] MEDS: LACTATED RINGERS 1,000 ML IV SCH ×3 (04:31→14:46)
[2017-10-20] MEDS: NYSTATIN 100,000 UNIT/GM POWD 15 GM TOPICAL SCH ×2 (04:36→08:46)
[2017-10-20] MEDS: PANTOPRAZOLE 40 MG TABLET PO SCH (06:36)
[2017-10-20 06:59] LABS: Glucose,Whole Blood 142 mg/dL (75-99)
[2017-10-20 07:02] VITALS: BP 108/60; PULSE 67
[2017-10-20] MEDS: IPRATROPIUM-ALBUTEROL 3 ML NEB INHALATION SCH ×2 (07:41→10:52)
[2017-10-20 08:12] LABS: Calcium 9.2 mg/dL (8.4-10.2)
[2017-10-20 08:17] LABS: Potassium 2.9 mmol/L (3.5-5.1)
[2017-10-20] MEDS: TOPIRAMATE 25 MG TAB PO SCH (08:45)
[2017-10-20] MEDS: SERTRALINE 25 MG TAB PO SCH (08:45)
[2017-10-20] MEDS: PRIMIDONE 50 MG TAB PO SCH (08:45)
[2017-10-20] MEDS: ALLOPURINOL 100 MG TAB PO SCH (08:45)
[2017-10-20] MEDS: FINASTERIDE 5 MG TAB PO SCH (08:46)
[2017-10-20] MEDS: INSULIN ASPART 100 UNIT/ML 1 ML 10 ML VIAL SQ SCH ×4 (08:46→12:18)
[2017-10-20] MEDS: PREGABALIN 50 MG CAP PO SCH (08:46)
[2017-10-20] MEDS: PROPRANOLOL 20 MG TAB PO SCH (08:46)
[2017-10-20] MEDS: oxyCODONE-APAP 10-325MG 1 EACH TAB PO PRN (08:55)
[2017-10-20] MEDS: POTASSIUM CHLORIDE ER 20 MEQ TAB.ER PO SCH ×2 (10:49→12:17)
[2017-10-20] MEDS ORDERED: MAGNESIUM SULFATE-D5W PMX 1 GM in DEXTROSE/WATER 1 100ML.BAG IVPB ONE (11:00)
[2017-10-20 11:30] LABS: Glucose,Whole Blood 189 mg/dL (75-99)
[2017-10-20 14:33] LABS: Magnesium 2.9 mg/dL (1.6-2.3); Potassium 3.4 mmol/L (3.5-5.1)
[2017-10-20 15:28] VITALS: RESP 18; TEMP 98.7
--- NOTE | 2017-10-20 15:51 | DS ---
DISCHARGE SUMMARY DATE OF ADMISSION: 10/17/2017 DATE OF DISCHARGE: 10/20/2017 FINAL DIAGNOSES: 1. Acute metabolic encephalopathy, multifactorial, including from medication, in the setting of renal failure. 2. Persistent atrial fibrillation. Patient is chronically on Xarelto. 3. Chronic congestive heart failure. Ejection fraction 55% to 60% per echocardiogram. 4. Chronic obstructive pulmonary disease. 5. Diabetes mellitus, type 2, chronically on insulin. 6. Gastroesophageal reflux disease. 7. Essential hypertension. 8. Hyperlipidemia. 9. Primary osteoarthritis. 10.Chronic gout. 11.Parkinson's disease. 12.Coronary artery disease with history of coronary artery bypass in 2007. 13.Benign prostatic hypertrophy. 14.Peripheral neuropathy from diabetes. 15.Anxiety, depression not otherwise specified. 16.Morbid obesity with body mass index of 41.5. 17.Severe hypokalemia. HOSPITAL COURSE: This patient when he presented was rather lethargic, drowsy; felt to be severe metabolic encephalopathy. Patient's 2D echo showed preserved LV function. Several diuretics were discontinued. It is felt that a lot of his swelling of the lower extremities is probably from venous insufficiency. Patient's creatinine at the time of admission was 1.62. It did come down to 1.18. Potassium was 3.4 by the time of discharge. Patient woke up, was communicating. PHYSICAL EXAMINATION: LUNGS: Decreased breath sounds. Mild tremors. DISCHARGE MEDICATIONS: 1. Uloric 80 mg a day. 2. Proscar 5 mg a day. 3. Lantus 30 units subcutaneously at bedtime. 4. Prilosec 20 mg a day. 5. Pravachol 80 mg at bedtime. 6. Inderal 20 mg b.i.d. 7. Flomax 0.8 mg at bedtime. 8. Mysoline 100 mg p.o. daily. 9. Zoloft 75 mg p.o. daily. 10.Aldactone 25 mg daily. 11.Tylenol 650 mg q.4 p.r.n. 12.Lac-Hydrin 12% topically b.i.d. 13.Dulcolax 10 mg rectally daily p.r.n. 14.Maalox 30 mL q.6 p.r.n. 15.Milk of Magnesia 2400 mg p.r.n. 16.Menthol 1 application topically q.8 p.r.n. 17.Mysoline 50 mg p.o. daily. 18.Topamax 50 mg p.o. b.i.d. 19.Kenalog 0.5% one application topically b.i.d. p.r.n. 20.NovoLog 40 units b.i.d. and 24 units with supper. 21.DuoNeb t.i.d. 22.Mycostatin topically b.i.d. 23.Lyrica 50 mg b.i.d. 24.Xarelto 15 mg at bedtime. 25.Percocet 10 one tablet q.4 p.r.n. for pain. DISPOSITION: [facility]. Follow up with Dr. Soria at [facility]. Follow up with Dr. Lange after discharge from there. ADDITIONAL NOTE: Patient's legal guardian is Gee Salomon. CODE STATUS is FULL CODE. MMODL / IJN: [id number] /
== END 2017-10-20 15:56 | DRG 682 ==
LOC: EC 16:15 → 4MS4W 18:15
PROVIDERS: ADMIT Hospitalist; ATTEND Hospitalist
DX: N17.9 Acute kidney failure, unspecified (principal); G93.41 Metabolic encephalopathy; I13.0 Hypertensive heart and chronic kidney disease with heart failure and stage 1 through stage 4 chronic kidney disease, or unspecified chronic kidney disease; Z68.41 Body mass index [BMI] 40.0-44.9, adult; J44.9 Chronic obstructive pulmonary disease, unspecified; K21.9 Gastro-esophageal reflux disease without esophagitis; E11.42 Type 2 diabetes mellitus with diabetic polyneuropathy; E11.22 Type 2 diabetes mellitus with diabetic chronic kidney disease; I50.9 Heart failure, unspecified; E78.5 Hyperlipidemia, unspecified; M19.91 Primary osteoarthritis, unspecified site; M1A.9XX0 Chronic gout, unspecified, without tophus (tophi); G20 Parkinson's disease; I25.10 Atherosclerotic heart disease of native coronary artery without angina pectoris; N40.0 Benign prostatic hyperplasia without lower urinary tract symptoms; F32.9 Major depressive disorder, single episode, unspecified; F41.9 Anxiety disorder, unspecified; E66.01 Morbid (severe) obesity due to excess calories; E87.6 Hypokalemia; I48.2 Chronic atrial fibrillation; I89.0 Lymphedema, not elsewhere classified; I87.2 Venous insufficiency (chronic) (peripheral); N18.9 Chronic kidney disease, unspecified; R09.02 Hypoxemia; Z96.643 Presence of artificial hip joint, bilateral; Z79.899 Other long term (current) drug therapy; Z79.01 Long term (current) use of anticoagulants; Z87.11 Personal history of peptic ulcer disease; Z95.1 Presence of aortocoronary bypass graft; I25.2 Old myocardial infarction; Z79.4 Long term (current) use of insulin; Z87.891 Personal history of nicotine dependence; Z90.89 Acquired absence of other organs; Z87.19 Personal history of other diseases of the digestive system; Z88.5 Allergy status to narcotic agent; Z88.0 Allergy status to penicillin; Z88.2 Allergy status to sulfonamides; Z88.8 Allergy status to other drugs, medicaments and biological substances; Z88.6 Allergy status to analgesic agent; Z88.1 Allergy status to other antibiotic agents; Z91.040 Latex allergy status
CPT/HCPCS: 36415; 70450; 71046; 80048; 80053; 81003; 82140; 82550; 82553; 83036; 83605; 83735; 84100; 84132; 84484; 85025; 85610; 85730; 87086; 93005; 93306; 93970; 94760

== ENCOUNTER 2017-11-09 12:44 | Emergency (ER) | payer MEDICARE, OTHER ==
[2017-11-09 12:54] VITALS: RESP 18
[2017-11-09] MEDS ORDERED: SODIUM CHLORIDE 0.9% 500 ML IV STA (13:22)
[2017-11-09 13:38] LABS: Basophils % (A) 1 %; Eosinophils # (A) 0.2 k/uL (0-0.7); Eosinophils % (A) 3 %; HCT 47.8 % (39.0-53.0); HGB 16.4 gm/dL (13.0-17.5); Lymphocytes # (A) 1.2 k/uL (1.0-4.8); Lymphocytes % (A) 23 %; MCH 33.4 pg (25.0-35.0); MCHC 34.4 g/dL (31.0-37.0); MCV 97.1 fL (80.0-100.0); Mean Platelet Volume 7.7; Monocytes # (A) 0.4 k/uL (0-1.0); Monocytes % (A) 7 %; Neutrophils # (A) 3.5 k/uL (1.3-7.7); Neutrophils % (A) 65 %; Platelet Count 137 k/uL (150-450); RBC 4.93 m/uL (4.30-5.90); RDW 14.1 % (11.5-15.5); WBC 5.4 k/uL (3.8-10.6)
[2017-11-09 13:51] LABS: ALT 24 U/L (21-72); AST 20 U/L (17-59); Albumin 3.5 g/dL (3.5-5.0); Alkaline Phosphatase 68 U/L (38-126); Anion Gap 12 mmol/L; Blood Urea Nitrogen 12 mg/dL (9-20); Carbon Dioxide 28 mmol/L (22-30); Chloride 100 mmol/L (98-107); Glucose 128 mg/dL (74-99); Lipase 98 U/L (23-300); Potassium 3.7 mmol/L (3.5-5.1); Sodium 140 mmol/L (137-145); Total Bilirubin 0.8 mg/dL (0.2-1.3); Total Protein 6.1 g/dL (6.3-8.2)
--- NOTE | 2017-11-09 14:06 | CT ---
EXAMINATION TYPE: CT abdomen pelvis wo con DATE OF EXAM: 11/09/2017 COMPARISON: 01/06/2014 INDICATION: generalized pain DLP: 1189.3 mGycm, Automated exposure control for dose reduction was used. CONTRAST: 0 mL of Isovue 300. Study performed without Oral Contrast TECHNIQUE: Axial images were obtained from above the diaphragm to the pubic rami in the axial plane a t 5 mm thick sections. Reconstructed images are reviewed on the computer in the coronal plane. FINDINGS: Limited CT sections are obtained the lung bases. The lung bases are clear. Coronary artery calcific ation is present. There is elevation left diaphragm. CT ABDOMEN: Liver: Normal Spleen: Normal. Splenic artery calcification is noted. Pancreas: Fatty infiltration with atrophy. Adrenal glands: The adrenal glands are normal. Gallbladder: Normal Kidneys: No masses are evident. No hydronephrosis is present. No cysts are present. Several nonobs tructing renal stones are present on the left measuring approximately 3 mm each. A nonobstructing rig ht renal stones also measuring approximately 3 mm is present. No hydronephrosis or hydroureter is catie dent. Aorta: Vascular calcification is within the aorta. Inferior vena cava: Normal. CT PELVIS: There is limitation on the lower portion of the pelvis due to beam hardening artifact from bilateral hip prostheses. Loops of bowel within the abdomen and pelvis are normal. Study is without oral contrast limiting the evaluation. Appendix: Not identified. Note is dilated tubular structure inflammatory changes evident. Urinary bladder: Normal. Genitourinary structures: Prostate is poorly visualized Osseous structures: No suspicious lytic or sclerotic lesions. Bilateral hip prostheses are present. T his limits lower pelvic evaluation. Facet degenerative changes are within the lumbar spine. IMPRESSIONS: 1. Nonobstructing bilateral renal stones. 2. No suspicious abnormality to account for generalized abdominal pain
[2017-11-09] MEDS ORDERED: DOXYCYCLINE MONOHYDRATE 100 MG CAPSULE PO STA (15:55)
--- NOTE | 2017-11-09 15:58 | ED ---
Abdominal Pain HPI - General Chief Complaint: Abdominal Pain Stated Complaint: abdominal pain Time Seen by Provider: 11/09/17 12:48 Source: patient, EMS Mode of arrival: EMS Limitations: no limitations - History of Present Illness Initial Comments: 67 yo male with pmh as noted below presenting for evaluation of abdominal pain. States the pain has been present for the last 3 days without improvement. Had recent NGT tube placed for ulcer. Went to first and was then directed to the ED for further treatment and evaluation. ALso states lower extremity edema with discomfort and erythema. Concerned for cellulitis. Denies nausea, vomiting, fevers, chills, chest pain, shortness of breath. - Related Data Home Medications Medication Instructions Recorded Confirmed Febuxostat [Uloric] 80 mg PO DAILY 12/19/13 11/09/17 Finasteride [Proscar] 5 mg PO DAILY 12/19/13 11/09/17 Insulin Glargine [Lantus] 30 units SQ HS@2130 12/19/13 11/09/17 Omeprazole [PriLOSEC] 20 mg PO DAILY@0600 12/19/13 11/09/17 Pravastatin Sodium [Pravachol] 80 mg PO HS 12/19/13 11/09/17 Propranolol [Inderal] 20 mg PO BID@12/19/13 11/09/17 Tamsulosin [Flomax] 0.8 mg PO HS 12/19/13 11/09/17 Sertraline [Zoloft] 75 mg PO DAILY 02/17/14 11/09/17 Spironolactone [Aldactone] 25 mg PO DAILY 05/21/14 11/09/17 Ammonium Lactate Lotion 1 applic TOPICAL BID PRN 10/17/17 11/09/17 [Lac-Hydrin 12% Lotion] Bisacodyl [Dulcolax] 10 mg RECTAL DAILY PRN 10/17/17 11/09/17 Mag Hydrox/Al Hydrox/Simeth 30 ml PO Q6H PRN 10/17/17 11/09/17 [Maalox] Magnesium Hydroxide [Milk of 2,400 mg PO DAILY PRN 10/17/17 11/09/17 Magnesia] Topiramate [Topamax] 50 mg PO BID@,10/17/17 11/09/17 Triamcinolone 0.5% Cream [Kenalog 1 applic TOPICAL BID PRN 10/17/17 11/09/17 0.5% Cream] Gabapentin [Neurontin] 300 mg PO TID 11/09/17 11/09/17 Insulin Aspart [NovoLOG 14 unit SQ AC-TID 11/09/17 11/09/17 (formulary)] Ipratropium-Albuterol Nebulize 3 ml INHALATION RT-TID 11/09/17 11/09/17 [Duoneb 0.5 mg-3 mg/3 ml Soln] LORazepam [Ativan] 0.5 mg PO Q8H PRN 11/09/17 11/09/17 Menthol [Biofreeze] 1 applic TOPICAL Q6H PRN 11/09/17 11/09/17 Potassium Chloride [Klor-Con 20] 20 meq PO BID@,17 11/09/17 11/09/17 Pregabalin [Lyrica] 50 mg PO BID@,17 11/09/17 11/09/17 Previous Rx's Medication Instructions Recorded Nystatin 100,000 Unit/gm Powd 1 applic TOPICAL BID applic 10/20/17 [Mycostatin Powder] Rivaroxaban [Xarelto] 15 mg PO HS tab 10/20/17 oxyCODONE-APAP 10-325MG [Percocet 1 tab PO Q4HR PRN #14 tab 10/20/17 10-325 mg] Doxycycline Monohydrate [Monodox] 100 mg PO Q12HR #14 cap 11/09/17 Ondansetron Odt [Zofran Odt] 4 mg PO Q8HR PRN #7 tab 11/09/17 Allergies Allergy/AdvReac Type Severity Reaction Status Date / Time acetaminophen [From [place]] Allergy Rash/Hives Verified 11/09/17 13:24 cephalexin monohydrate Allergy Rash/Hives Verified 11/09/17 13:24 [From Keflex] codeine Allergy Nausea & Verified 11/09/17 13:24 Vomiting hydrocodone bitartrate Allergy Rash/Hives Verified 11/09/17 13:24 [From [place]] Latex, Natural Rubber Allergy Rash/Hives Verified 11/09/17 13:24 levofloxacin [From Levaquin] Allergy Rash/Hives Verified 11/09/17 13:24 morphine Allergy Confusion Verified 11/09/17 13:24 Penicillins Allergy Anaphylaxis Verified 11/09/17 13:24 Sulfa (Sulfonamide Allergy Anaphylaxis Verified 11/09/17 13:24 Antibiotics) bitartrate Allergy Unknown Uncoded 11/09/17 12:53 Review of Systems ROS Statement: Those systems with pertinent positive or pertinent negative responses have been documented in the HPI. ROS Other: All systems not noted in ROS Statement are negative. Constitutional: Denies: fever, chills Eyes: Denies: eye pain, vision change ENT: Denies: ear pain, throat pain Respiratory: Denies: cough, dyspnea Cardiovascular: Denies: chest pain, palpitations Endocrine: Denies: fatigue, polydipsia Gastrointestinal: Reports: abdominal pain. Denies: nausea, vomiting Genitourinary: Denies: urgency, dysuria Musculoskeletal: Denies: back pain, arthralgia, myalgia Skin: Reports: rash, change in color Neurological: Denies: headache, weakness Psychiatric: Denies: anxiety, depression Hematological/Lymphatic: Reports: easy bleeding, easy bruising Past Medical History Past Medical History: Atrial Fibrillation, Heart Failure, COPD, Diabetes Mellitus, GERD/Reflux, Hyperlipidemia, Hypertension, Myocardial Infarction ([place]) , Osteoarthritis (OA), Prostate Disorder, Renal Disease, Skin Disorder Additional Past Medical History / Comment(s): gout multipleUTI's/BLADDER INFECTION,,parkinsons/ TREMORS,ECZEMA, HAD A ANEURYSYM IN BACK OF LEFT EYE HAD SX. Hx [place] 2007 and had PTCA with stents.Pt occasionally constipated.bph, duodenal ulcer,djd,gout,neuropathy Last Myocardial Infarction Date:: 2007 History of Any Multi-Drug Resistant Organisms: None Reported Past Surgical History: Coronary Bypass/CABG, Heart Catheterization With Stent, Hernia Repair, Joint Replacement, Tonsillectomy Additional Past Surgical History / Comment(s): triple bypass 2007 lt leg vein harvested got cabg. stevenson hip replacement.ganglion cyst removed rt wrist/neck.egd, . left hip replacement,TRIPLE BYPASS,ganglion cyst removed, lt leg vein harvested for cabg sx, Past Anesthesia/Blood Transfusion Reactions: Postoperative Nausea & Vomiting ( PONV) Additional Past Anesthesia/Blood Transfusion Reaction / Comment(s): no history of blood transfusion Date of Last Stent Placement:: 2007 Past Psychological History: Anxiety, Depression Smoking Status: Former smoker Past Alcohol Use History: None Reported Past Drug Use History: None Reported - Past Family History Father Family Medical History: CVA/TIA Additional Family Medical History / Comment(s): Father at age 79. Mother Additional Family Medical History / Comment(s): Mother at age 82. Mother had TB 1n 1952. General Exam Limitations: no limitations General appearance: alert, in no apparent distress Head exam: Present: atraumatic, normocephalic Eye exam: Present: normal appearance, PERRL, EOMI ENT exam: Present: normal exam, normal oropharynx Neck exam: Present: normal inspection, full ROM. Absent: tenderness, meningismus Respiratory exam: Present: normal lung sounds bilaterally. Absent: respiratory distress, wheezes, rales, rhonchi, stridor Cardiovascular Exam: Present: regular rate, normal rhythm, normal heart sounds. Absent: systolic murmur, diastolic murmur, rubs, gallop, clicks GI/Abdominal exam: Present: soft, tenderness (generally), normal bowel sounds. Absent: distended, guarding, rebound, rigid Rectal exam: Present: deferred Extremities exam: Present: normal inspection, full ROM, normal capillary refill. Absent: tenderness, pedal edema, joint swelling, calf tenderness Back exam: Present: normal inspection Neurological exam: Present: alert, oriented X3, CN II-XII intact Psychiatric exam: Present: normal affect, normal mood Skin exam: Present: warm, dry, intact, erythema Course Vital Signs 11/09/17 11/09/17 11/09/17 12:46 13:52 15:13 Temperature 97.3 F L Pulse Rate 81 93 91 Respiratory 18 18 18 Rate Blood Pressure 161/91 173/84 163/86 O2 Sat by Pulse 96 100 98 Oximetry 11/09/17 16:43 Temperature 98.7 F Pulse Rate 93 Respiratory 18 Rate Blood Pressure 156/98 O2 Sat by Pulse 98 Oximetry Medical Decision Making - Medical Decision Making 67 yo male with pmh as above presenting for evaluation of abdominal pain and LE discoloration. On PE he appears to be in NAD with VSS. Abdomen is soft and tender without peritoneal signs of guarding, rigidity, or rebound. There is also erythema to the lower extremity with induration, concerning for cellulitis. Labs obtained which showed no significant abnormality. CT abdomen and pelvis non-specific. Pt given first dose of antibiotic in ED. Advised to follow up with PCP. Further given return instructions. He acknowledged an understanding of all information provided and agreed with this plan of care. - Lab Data Result diagrams: 11/09/17 13:27 11/09/17 13:27 Lab Results 11/09/17 11/09/17 11/09/17 Range/Units 13:27 13:27 13:27 WBC 5.4 (3.8-10.6) k/uL RBC 4.93 (4.30-5.90) m/uL Hgb 16.4 (13.0-17.5) gm/dL Hct 47.8 (39.0-53.0) % MCV 97.1 (80.0-100.0) fL MCH 33.4 (25.0-35.0) pg MCHC 34.4 (31.0-37.0) g/dL RDW 14.1 (11.5-15.5) % Plt Count 137 L (150-450) k/uL Neutrophils % 65 % Lymphocytes % 23 % Monocytes % 7 % Eosinophils % 3 % Basophils % 1 % Neutrophils # 3.5 (1.3-7.7) k/uL Lymphocytes # 1.2 (1.0-4.8) k/uL Monocytes # 0.4 (0-1.0) k/uL Eosinophils # 0.2 (0-0.7) k/uL Basophils # 0.0 (0-0.2) k/uL Sodium 140 (137-145) mmol/L Potassium 3.7 (3.5-5.1) mmol/L Chloride 100 (98-107) mmol/L Carbon Dioxide 28 (22-30) mmol/L Anion Gap 12 mmol/L BUN 12 (9-20) mg/dL Creatinine 0.80 (0.66-1.25) mg/dL Est GFR (CKD-EPI)AfAm >90 (>60 ml/min/1.73 sqM) Est GFR (CKD-EPI)NonAf >90 (>60 ml/min/1.73 sqM) Glucose 128 H (74-99) mg/dL Plasma Lactic Acid Juan 1.3 (0.7-2.0) mmol/L Calcium 10.0 (8.4-10.2) mg/dL Total Bilirubin 0.8 (0.2-1.3) mg/dL AST 20 (17-59) U/L ALT 24 (21-72) U/L Alkaline Phosphatase 68 (38-126) U/L Total Protein 6.1 L (6.3-8.2) g/dL Albumin 3.5 (3.5-5.0) g/dL Lipase 98 (23-300) U/L Disposition Clinical Impression: Cellulitis of lower extremity, Abdominal pain Disposition: HOME SELF-CARE Condition: Stable Instructions: Doxycycline (By mouth), Cellulitis (ED), Abdominal Pain (ED) Additional Instructions: Please use medication as discussed. Please follow up with family doctor if symptoms have not improved over the next two days. Please return to the emergency room if your symptoms increase or worsen or for any other concerns. Prescriptions: Doxycycline Monohydrate [Monodox] 100 mg PO Q12HR #14 cap Ondansetron Odt [Zofran Odt] 4 mg PO Q8HR PRN #7 tab PRN Reason: Nausea Is patient prescribed a controlled substance at d/c from ED?: No Referrals: Nonstaff,Physician [Primary Care Provider] - 1-2 days Jak Cooper MD [STAFF PHYSICIAN] - 1-2 days Time of Disposition: 15:58
[2017-11-09 16:44] VITALS: BP 156/98; PULSE 93; TEMP 98.7
== END 2017-11-09 17:26 | disposition home or self-care (01) ==
LOC: EC 12:44
DX: L03.119 Cellulitis of unspecified part of limb (principal); R10.9 Unspecified abdominal pain; I48.91 Unspecified atrial fibrillation; I13.0 Hypertensive heart and chronic kidney disease with heart failure and stage 1 through stage 4 chronic kidney disease, or unspecified chronic kidney disease; I50.9 Heart failure, unspecified; E11.22 Type 2 diabetes mellitus with diabetic chronic kidney disease; N18.9 Chronic kidney disease, unspecified; E11.40 Type 2 diabetes mellitus with diabetic neuropathy, unspecified; K21.9 Gastro-esophageal reflux disease without esophagitis; E78.5 Hyperlipidemia, unspecified; I25.2 Old myocardial infarction; J44.9 Chronic obstructive pulmonary disease, unspecified; M10.9 Gout, unspecified; F41.9 Anxiety disorder, unspecified; F32.9 Major depressive disorder, single episode, unspecified; Z87.438 Personal history of other diseases of male genital organs; Z95.5 Presence of coronary angioplasty implant and graft; Z95.1 Presence of aortocoronary bypass graft; Z96.643 Presence of artificial hip joint, bilateral; Z87.891 Personal history of nicotine dependence; Z79.4 Long term (current) use of insulin; Z79.899 Other long term (current) drug therapy; Z88.6 Allergy status to analgesic agent; Z88.1 Allergy status to other antibiotic agents; Z88.5 Allergy status to narcotic agent; Z91.040 Latex allergy status; Z88.0 Allergy status to penicillin; Z88.2 Allergy status to sulfonamides; Z88.8 Allergy status to other drugs, medicaments and biological substances
CPT/HCPCS: 36415; 74176; 80053; 83605; 83690; 85025; 99284

== ENCOUNTER 2017-12-22 22:13 | Emergency (ER) | payer MEDICARE, OTHER ==
[2017-12-22] MEDS ORDERED: SODIUM CHLORIDE 0.9% 500 ML IV STA (22:14)
--- NOTE | 2017-12-22 22:22 | ED ---
General Adult HPI - General Stated complaint: Rectal bleeding Time Seen by Provider: 12/22/17 22:15 Source: RN notes reviewed - History of Present Illness Initial comments: This is a 67-year-old male with a past medical history significant for GI bleed. Patient was sent in today because 11:00 this morning they noted some blood with his stool in though he has not had any more blood with his stool they sent a minute at 10:00 tonight because of the earlier bleeding. Patient has no complaint. Patient complains of diffuse mild abdominal pain patient denies diarrhea or vomiting. Patient denies any chest pain or difficulty breathing shortest breath per patient denies any headache patient denies numbness weakness. Patient is on Xarelto. - Related Data Home Medications Medication Instructions Recorded Confirmed Finasteride [Proscar] 5 mg PO DAILY 12/19/13 12/22/17 Omeprazole [PriLOSEC] 20 mg PO DAILY@0600 12/19/13 12/22/17 Pravastatin Sodium [Pravachol] 80 mg PO HS 12/19/13 12/22/17 Propranolol [Inderal] 20 mg PO BID@12/19/13 12/22/17 Tamsulosin [Flomax] 0.8 mg PO HS 12/19/13 12/22/17 Sertraline [Zoloft] 75 mg PO DAILY 02/17/14 12/22/17 Spironolactone [Aldactone] 25 mg PO DAILY 05/21/14 12/22/17 Ammonium Lactate Lotion 1 applic TOPICAL BID PRN 10/17/17 12/22/17 [Lac-Hydrin 12% Lotion] Bisacodyl [Dulcolax] 10 mg RECTAL DAILY PRN 10/17/17 12/22/17 Mag Hydrox/Al Hydrox/Simeth 30 ml PO Q6H PRN 10/17/17 12/22/17 [Maalox] Topiramate [Topamax] 50 mg PO BID@,10/17/17 12/22/17 Triamcinolone 0.5% Cream [Kenalog 1 applic TOPICAL BID PRN 10/17/17 12/22/17 0.5% Cream] Insulin Aspart [NovoLOG 14 unit SQ AC-TID 11/09/17 12/22/17 (formulary)] Menthol [Biofreeze] 1 applic TOPICAL Q6H PRN 11/09/17 12/22/17 Allopurinol [Zyloprim] 300 mg PO DAILY 12/22/17 12/22/17 Furosemide [Lasix] 40 mg PO DAILY 12/22/17 12/22/17 Lactulose 20 gm PO DAILY 12/22/17 12/22/17 Pregabalin [Lyrica] 100 mg PO BID 12/22/17 12/22/17 Previous Rx's Medication Instructions Recorded Nystatin 100,000 Unit/gm Powd 1 applic TOPICAL BID applic 10/20/17 [Mycostatin Powder] Rivaroxaban [Xarelto] 15 mg PO HS tab 10/20/17 oxyCODONE-APAP 10-325MG [Percocet 1 tab PO Q4HR PRN #14 tab 10/20/17 10-325 mg] Ondansetron Odt [Zofran Odt] 4 mg PO Q8HR PRN #7 tab 11/09/17 Allergies Allergy/AdvReac Type Severity Reaction Status Date / Time acetaminophen [From [place]] Allergy Rash/Hives Verified 12/22/17 22:36 cephalexin monohydrate Allergy Rash/Hives Verified 12/22/17 22:36 [From Keflex] codeine Allergy Nausea & Verified 12/22/17 22:36 Vomiting hydrocodone bitartrate Allergy Rash/Hives Verified 12/22/17 22:36 [From [place]] Latex, Natural Rubber Allergy Rash/Hives Verified 12/22/17 22:36 levofloxacin [From Levaquin] Allergy Rash/Hives Verified 12/22/17 22:36 morphine Allergy Confusion Verified 12/22/17 22:36 Penicillins Allergy Anaphylaxis Verified 12/22/17 22:36 Sulfa (Sulfonamide Allergy Anaphylaxis Verified 12/22/17 22:36 Antibiotics) bitartrate Allergy Unknown Uncoded 11/09/17 12:53 Review of Systems ROS Statement: Those systems with pertinent positive or pertinent negative responses have been documented in the HPI. ROS Other: All systems not noted in ROS Statement are negative. Past Medical History Past Medical History: Atrial Fibrillation, Heart Failure, COPD, Diabetes Mellitus, GERD/Reflux, Hyperlipidemia, Hypertension, Myocardial Infarction ([place]) , Osteoarthritis (OA), Prostate Disorder, Renal Disease, Skin Disorder Additional Past Medical History / Comment(s): gout multipleUTI's/BLADDER INFECTION,,parkinsons/ TREMORS,ECZEMA, HAD A ANEURYSYM IN BACK OF LEFT EYE HAD SX. Hx [place] 2007 and had PTCA with stents.Pt occasionally constipated.bph, duodenal ulcer,djd,gout,neuropathy Last Myocardial Infarction Date:: 2007 History of Any Multi-Drug Resistant Organisms: None Reported Past Surgical History: Coronary Bypass/CABG, Heart Catheterization With Stent, Hernia Repair, Joint Replacement, Tonsillectomy Additional Past Surgical History / Comment(s): triple bypass 2007 lt leg vein harvested got cabg. stevenson hip replacement.ganglion cyst removed rt wrist/neck.egd, . left hip replacement,TRIPLE BYPASS,ganglion cyst removed, lt leg vein harvested for cabg sx, Past Anesthesia/Blood Transfusion Reactions: Postoperative Nausea & Vomiting ( PONV) Additional Past Anesthesia/Blood Transfusion Reaction / Comment(s): no history of blood transfusion Date of Last Stent Placement:: 2007 Past Psychological History: Anxiety, Depression Smoking Status: Former smoker Past Alcohol Use History: None Reported Past Drug Use History: None Reported - Past Family History Father Family Medical History: CVA/TIA Additional Family Medical History / Comment(s): Father at age 79. Mother Additional Family Medical History / Comment(s): Mother at age 82. Mother had TB 1n 1952. General Exam - General Exam Comments Initial Comments: GENERAL: Patient is well-developed and well-nourished. Patient is nontoxic and well- hydrated and is in no acute distress. ENT: Neck is soft and supple. No significant lymphadenopathy is noted. Oropharynx is clear. Moist mucous membranes. EYES: The sclera were anicteric and conjunctiva were pink and moist. Extraocular movements were intact and pupils were equal round and reactive to light. Eyelids were unremarkable. PULMONARY: Unlabored respirations. Good breath sounds bilaterally. No audible rales rhonchi or wheezing was noted. CARDIOVASCULAR: There is a regular rate and rhythm without any murmurs gallops or rubs. ABDOMEN: Soft and nontender with normal bowel sounds. No palpable organomegaly was noted. There is no palpable pulsatile mass. RECTAL On rectal examination there was no hemorrhoids or fissures noted however there was some excoriation of the skin secondary to early breakdown which was bleeding and causing some blood on the brief. SKIN: Skin is clear with no lesions or rashes and otherwise unremarkable. NEUROLOGIC: Patient is alert and oriented 2. Cranial nerves II through XII are grossly intact. Motor and sensory are also intact. Normal speech, volume and content. Symmetrical smile. MUSCULOSKELETAL: Normal extremities with adequate strength and full range of motion. LYMPHATICS: No significant lymphadenopathy is noted PSYCHIATRIC: Normal psychiatric evaluation. Course Vital Signs 12/22/17 12/22/17 12/23/17 22:17 23:36 00:16 Temperature 97 F L 97.3 F L Pulse Rate 71 80 66 Respiratory 18 18 18 Rate Blood Pressure 104/54 119/80 165/62 O2 Sat by Pulse 97 96 97 Oximetry Medical Decision Making - Medical Decision Making Patient had no bloody bowel movements while in the emergency department and only had one which occurred left o'clock this morning. She has been stable hemoglobin 14. - Lab Data Result diagrams: 12/22/17 22:31 12/22/17 22:31 Lab Results 12/22/17 12/22/17 12/22/17 Range/Units 22:28 22:31 22:31 WBC 6.6 (3.8-10.6) k/uL RBC 4.63 (4.30-5.90) m/uL Hgb 14.9 (13.0-17.5) gm/dL Hct 45.6 (39.0-53.0) % MCV 98.5 (80.0-100.0) fL MCH 32.2 (25.0-35.0) pg MCHC 32.6 (31.0-37.0) g/dL RDW 15.0 (11.5-15.5) % Plt Count 170 (150-450) k/uL Neutrophils % 70 % Lymphocytes % 18 % Monocytes % 5 % Eosinophils % 6 % Basophils % 0 % Neutrophils # 4.7 (1.3-7.7) k/uL Lymphocytes # 1.2 (1.0-4.8) k/uL Monocytes # 0.3 (0-1.0) k/uL Eosinophils # 0.4 (0-0.7) k/uL Basophils # 0.0 (0-0.2) k/uL Macrocytosis Slight PT (9.0-12.0) sec INR (<1.2) APTT (22.0-30.0) sec Sodium (137-145) mmol/L Potassium (3.5-5.1) mmol/L Chloride (98-107) mmol/L Carbon Dioxide (22-30) mmol/L Anion Gap mmol/L BUN (9-20) mg/dL Creatinine (0.66-1.25) mg/dL Est GFR (CKD-EPI)AfAm (>60 ml/min/1.73 sqM) Est GFR (CKD-EPI)NonAf (>60 ml/min/1.73 sqM) Glucose (74-99) mg/dL Calcium (8.4-10.2) mg/dL Total Bilirubin (0.2-1.3) mg/dL AST (17-59) U/L ALT (21-72) U/L Alkaline Phosphatase (38-126) U/L Total Creatine Kinase 21 L (55-170) U/L CK-MB (CK-2) <0.2 (0.0-2.4) ng/mL CK-MB (CK-2) Rel Index Troponin I 0.024 (0.000-0.034) ng/mL Total Protein (6.3-8.2) g/dL Albumin (3.5-5.0) g/dL Blood Type Blood Type Confirm A Negative Blood Type Recheck Antibody Screen Spec Expiration Date 12/22/17 12/22/17 12/22/17 Range/Units 22:31 22:31 22:31 WBC (3.8-10.6) k/uL RBC (4.30-5.90) m/uL Hgb (13.0-17.5) gm/dL Hct (39.0-53.0) % MCV (80.0-100.0) fL MCH (25.0-35.0) pg MCHC (31.0-37.0) g/dL RDW (11.5-15.5) % Plt Count (150-450) k/uL Neutrophils % % Lymphocytes % % Monocytes % % Eosinophils % % Basophils % % Neutrophils # (1.3-7.7) k/uL Lymphocytes # (1.0-4.8) k/uL Monocytes # (0-1.0) k/uL Eosinophils # (0-0.7) k/uL Basophils # (0-0.2) k/uL Macrocytosis PT 11.6 (9.0-12.0) sec INR 1.2 H (<1.2) APTT 27.2 (22.0-30.0) sec Sodium 140 (137-145) mmol/L Potassium 3.4 L (3.5-5.1) mmol/L Chloride 102 (98-107) mmol/L Carbon Dioxide 30 (22-30) mmol/L Anion Gap 8 mmol/L BUN 13 (9-20) mg/dL Creatinine 0.90 (0.66-1.25) mg/dL Est GFR (CKD-EPI)AfAm >90 (>60 ml/min/1.73 sqM) Est GFR (CKD-EPI)NonAf 87 (>60 ml/min/1.73 sqM) Glucose 162 H (74-99) mg/dL Calcium 10.0 (8.4-10.2) mg/dL Total Bilirubin 0.6 (0.2-1.3) mg/dL AST 17 (17-59) U/L ALT 20 L (21-72) U/L Alkaline Phosphatase 57 (38-126) U/L Total Creatine Kinase (55-170) U/L CK-MB (CK-2) (0.0-2.4) ng/mL CK-MB (CK-2) Rel Index Troponin I (0.000-0.034) ng/mL Total Protein 6.0 L (6.3-8.2) g/dL Albumin 3.2 L (3.5-5.0) g/dL Blood Type A Negative Blood Type Confirm Blood Type Recheck CABO Indicated Antibody Screen NEGATIVE Spec Expiration Date 12/25/2017 233 Disposition Clinical Impression: Lower gastrointestinal hemorrhage, Decubitus ulcer of buttock, stage 1 Disposition: HOME SELF-CARE Instructions: Rectal Bleeding (ED) Additional Instructions: Patient is to have repeat CBC in the morning and the custodial has stated they will do Is patient prescribed a controlled substance at d/c from ED?: No Referrals: Fabrizio Lange DO [STAFF PHYSICIAN] - 1-2 days Time of Disposition: 23:44
[2017-12-22 22:27] VITALS: RESP 18
[2017-12-22 22:40] LABS: Basophils % (A) 0 %; Eosinophils # (A) 0.4 k/uL (0-0.7); Eosinophils % (A) 6 %; HCT 45.6 % (39.0-53.0); HGB 14.9 gm/dL (13.0-17.5); Lymphocytes # (A) 1.2 k/uL (1.0-4.8); Lymphocytes % (A) 18 %; MCH 32.2 pg (25.0-35.0); MCHC 32.6 g/dL (31.0-37.0); MCV 98.5 fL (80.0-100.0); Macrocytosis Slight; Mean Platelet Volume 8.8; Monocytes # (A) 0.3 k/uL (0-1.0); Monocytes % (A) 5 %; Neutrophils # (A) 4.7 k/uL (1.3-7.7); Neutrophils % (A) 70 %; Platelet Count 170 k/uL (150-450); RBC 4.63 m/uL (4.30-5.90); WBC 6.6 k/uL (3.8-10.6)
[2017-12-22 22:48] LABS: INR 1.2 (<1.2); Partial Thromboplastin Time 27.2 sec (22.0-30.0); Prothrombin Time 11.6 sec (9.0-12.0)
[2017-12-22 22:52] LABS: Creatine Kinase 21 U/L (55-170)
[2017-12-22 22:54] LABS: ALT 20 U/L (21-72); AST 17 U/L (17-59); Albumin 3.2 g/dL (3.5-5.0); Alkaline Phosphatase 57 U/L (38-126); Anion Gap 8 mmol/L; Blood Urea Nitrogen 13 mg/dL (9-20); Carbon Dioxide 30 mmol/L (22-30); Chloride 102 mmol/L (98-107); Glucose 162 mg/dL (74-99); Potassium 3.4 mmol/L (3.5-5.1); Sodium 140 mmol/L (137-145); Total Bilirubin 0.6 mg/dL (0.2-1.3)
[2017-12-22 23:05] LABS: Creatine Kinase MB <0.2 ng/mL (0.0-2.4); Troponin I 0.024 ng/mL (0.000-0.034)
[2017-12-23 00:17] VITALS: BP 165/62; PULSE 66; TEMP 97.3
== END 2017-12-23 00:16 | disposition home or self-care (01) ==
LOC: EC 22:13 → SUPCPDRO 22:13 → EC 12-23 00:16
DX: K92.2 Gastrointestinal hemorrhage, unspecified (principal); L89.321 Pressure ulcer of left buttock, stage 1; I48.91 Unspecified atrial fibrillation; E11.9 Type 2 diabetes mellitus without complications; I11.0 Hypertensive heart disease with heart failure; I50.9 Heart failure, unspecified; I25.2 Old myocardial infarction; G62.9 Polyneuropathy, unspecified; F41.9 Anxiety disorder, unspecified; F32.9 Major depressive disorder, single episode, unspecified; K21.9 Gastro-esophageal reflux disease without esophagitis; E78.5 Hyperlipidemia, unspecified; M19.90 Unspecified osteoarthritis, unspecified site; M10.9 Gout, unspecified; Z95.1 Presence of aortocoronary bypass graft; Z95.5 Presence of coronary angioplasty implant and graft; Z96.643 Presence of artificial hip joint, bilateral; Z98.890 Other specified postprocedural states; Z87.891 Personal history of nicotine dependence; Z79.4 Long term (current) use of insulin; Z79.899 Other long term (current) drug therapy; Z88.0 Allergy status to penicillin; Z88.1 Allergy status to other antibiotic agents; Z88.2 Allergy status to sulfonamides; Z88.5 Allergy status to narcotic agent; Z91.040 Latex allergy status
CPT/HCPCS: 36415; 80053; 82550; 82553; 84484; 85025; 85610; 85730; 86850; 86900; 86901; 96360; 99284

== ENCOUNTER 2018-10-13 09:36 | Emergency (ER) | payer MEDICARE, OTHER ==
--- NOTE | 2018-10-13 10:09 | ED ---
General Adult HPI - General Stated complaint: CARDIAC ISSUE Time Seen by Provider: 10/13/18 09:45 Source: patient, EMS, RN notes reviewed Mode of arrival: EMS Limitations: no limitations - History of Present Illness Initial comments: 68-year-old male with a past medical history of atrial fibrillation, heart failure, COPD, diabetes, GERD, hyperlipidemia, hypertension, MA presents to the emergency department for a chief complaint of tachycardia. Apparently patient has tremors due to his Parkinson's and pulse oximeter showed a pulse rate of 240 at [facility], [place]. No EKG was done at that time. Patient denying any symptoms whatsoever. Patient is in [facility] for vancomycin through PICC line due to left leg cellulitis.Patient has no other complaints at this time incl uding shortness of breath, chest pain, abdominal pain, nausea or vomiting, headache, or visual changes. - Related Data Home Medications Medication Instructions Recorded Confirmed Finasteride [Proscar] 5 mg PO DAILY 12/19/13 10/13/18 Omeprazole [PriLOSEC] 20 mg PO DAILY@0600 12/19/13 10/13/18 Pravastatin Sodium [Pravachol] 80 mg PO HS 12/19/13 10/13/18 Propranolol [Inderal] 20 mg PO BID 12/19/13 10/13/18 Tamsulosin [Flomax] 0.8 mg PO HS 12/19/13 10/13/18 Spironolactone [Aldactone] 25 mg PO DAILY 05/21/14 10/13/18 Bisacodyl [Dulcolax] 10 mg RECTAL DAILY PRN 10/17/17 10/13/18 Allopurinol [Zyloprim] 300 mg PO DAILY 12/22/17 10/13/18 Furosemide [Lasix] 40 mg PO DAILY 12/22/17 10/13/18 Lactulose 20 gm PO DAILY 12/22/17 10/13/18 Pregabalin [Lyrica] 100 mg PO BID 12/22/17 10/13/18 Acetaminophen Tab [Tylenol Tab] 650 mg PO Q6H PRN 10/13/18 10/13/18 Artificial Tears-Hypromellose 1 drops BOTH EYES Q6H PRN 10/13/18 10/13/18 [Artificial Tear Drops] Colloidal Oatmeal [Eucerin Eczema 1 applic TOPICAL DAILY 10/13/18 10/13/18 Relief] Dermacerin Cream 1 applic TOPICAL DAILY 10/13/18 10/13/18 Docusate [Colace] 100 mg PO DAILY 10/13/18 10/13/18 Hydrocodone/Acetaminophen [Rifle 1 tab PO Q6HR PRN 10/13/18 10/13/18 5-325] Insulin Glargine [Lantus] 30 unit SQ HS 10/13/18 10/13/18 Ipratropium-Albuterol Nebulize 3 ml INHALATION RT-Q4H PRN 10/13/18 10/13/18 [Duoneb 0.5 mg-3 mg/3 ml Soln] Mag Hydrox/Al Hydrox/Simeth 30 ml PO Q6H PRN 10/13/18 10/13/18 [Maalox] Menthol [Biofreeze] 1 applic TOPICAL Q8H PRN 10/13/18 10/13/18 Miconazole Powder 1 applic TOPICAL DAILY 10/13/18 10/13/18 Primidone [Mysoline] 50 mg PO DAILY 10/13/18 10/13/18 Triamcinolone 0.1% Cream [Kenalog 1 applicatio TOPICAL BID 10/13/18 10/13/18 0.1% Cream] Vancomycin 1,250 mg IVPB BID 10/13/18 10/13/18 Previous Rx's Medication Instructions Recorded Nystatin 100,000 Unit/gm Powd 1 applic TOPICAL BID applic 10/20/17 [Mycostatin Powder] Rivaroxaban [Xarelto] 15 mg PO HS tab 10/20/17 Ondansetron Odt [Zofran Odt] 4 mg PO Q8HR PRN #7 tab 11/09/17 Allergies Allergy/AdvReac Type Severity Reaction Status Date / Time acetaminophen [From Rifle] Allergy Rash/Hives Verified 10/13/18 10:15 cephalexin monohydrate Allergy Rash/Hives Verified 10/13/18 10:15 [From Keflex] codeine Allergy Nausea & Verified 10/13/18 10:15 Vomiting hydrocodone bitartrate Allergy Rash/Hives Verified 10/13/18 10:15 [From Rifle] Latex, Natural Rubber Allergy Rash/Hives Verified 10/13/18 10:15 levofloxacin [From Levaquin] Allergy Rash/Hives Verified 10/13/18 10:15 morphine Allergy Confusion Verified 10/13/18 10:15 Penicillins Allergy Anaphylaxis Verified 10/13/18 10:15 Sulfa (Sulfonamide Allergy Anaphylaxis Verified 10/13/18 10:15 Antibiotics) bitartrate Allergy Unknown Uncoded 11/09/17 12:53 Review of Systems ROS Statement: Those systems with pertinent positive or pertinent negative responses have been documented in the HPI. ROS Other: All systems not noted in ROS Statement are negative. Past Medical History Past Medical History: Atrial Fibrillation, Heart Failure, COPD, Diabetes Mellitus, GERD/Reflux, Hyperlipidemia, Hypertension, Myocardial Infarction (MA), Osteoarthritis (OA), Prostate Disorder, Renal Disease, Skin Disorder Additional Past Medical History / Comment(s): gout multipleUTI's/BLADDER INFECTION,,parkinsons/ TREMORS,ECZEMA, HAD A ANEURYSYM IN BACK OF LEFT EYE HAD SX. Hx MA 2007 and had PTCA with stents.Pt occasionally constipated.bph,duodenal ulcer,djd,gout,neuropathy Last Myocardial Infarction Date:: 2007 History of Any Multi-Drug Resistant Organisms: None Reported Past Surgical History: Coronary Bypass/CABG, Heart Catheterization With Stent, Hernia Repair, Joint Replacement, Tonsillectomy Additional Past Surgical History / Comment(s): triple bypass 2007 lt leg vein harvested got cabg. stevenson hip replacement.ganglion cyst removed rt wrist/neck.egd,. left hip replacement,TRIPLE BYPASS,ganglion cyst removed, lt leg vein harvested for cabg sx, Past Anesthesia/Blood Transfusion Reactions: Postoperative Nausea & Vomiting (PONV) Additional Past Anesthesia/Blood Transfusion Reaction / Comment(s): no history of blood transfusion Date of Last Stent Placement:: 2007 Past Psychological History: Anxiety, Depression Smoking Status: Former smoker Past Alcohol Use History: None Reported Past Drug Use History: None Reported - Past Family History Father Family Medical History: CVA/TIA Additional Family Medical History / Comment(s): Father at age 79. Mother Additional Family Medical History / Comment(s): Mother at age 82. Mother had TB 1n 1952. General Exam General appearance: alert, in no apparent distress Head exam: Present: atraumatic, normocephalic, normal inspection Eye exam: Present: normal appearance, PERRL, EOMI. Absent: scleral icterus, conjunctival injection, periorbital swelling ENT exam: Present: normal exam, mucous membranes moist Neck exam: Present: normal inspection, full ROM. Absent: tenderness, meningismus, lymphadenopathy Respiratory exam: Present: normal lung sounds bilaterally. Absent: respiratory distress, wheezes, rales, rhonchi, stridor Cardiovascular Exam: Present: regular rate, irregular rhythm, normal heart sounds GI/Abdominal exam: Present: soft, normal bowel sounds. 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 He was sent here because his pulse oximeter read 88 pulse rate of 240. However patient has Parkinson's and was shaking at the time. No EKG was obtained." Patient denying any symptoms. He is a heart rate fluctuating from 90-110. Patient has a history of A. fib currently anticoagulated with her all toe. CBC is unremarkable. Patient does have a white count of 12.3 but is currently receiving vancomycin through a PICC line due to cellulitis in the left leg. CMP is unremarkable. Troponin negative. Chest x-ray could not extrude a mild degree of heart failure however patient is not having any shortness of breath or chest pain and BNP is 198. Patient monitored for almost 3 hours in the emergency department, still denying a complaints. Was on residential monitor to monitor for dysrhythmia and heart rate, sustained in the 90s to 110s. At this time patient si stable can return to [facility]. - Lab Data Result diagrams: 10/13/18 10:02 10/13/18 10:02 Lab Results 10/13/18 10/13/18 10/13/18 Range/Units 10:02 10:02 10:02 WBC 12.3 H (3.8-10.6) k/uL RBC 4.32 (4.30-5.90) m/uL Hgb 14.6 (13.0-17.5) gm/dL Hct 44.5 (39.0-53.0) % MCV 103.0 H (80.0-100.0) fL MCH 33.9 (25.0-35.0) pg MCHC 32.9 (31.0-37.0) g/dL RDW 13.9 (11.5-15.5) % Plt Count 129 L (150-450) k/uL Neutrophils % 88 % Lymphocytes % 5 % Monocytes % 4 % Eosinophils % 2 % Basophils % 0 % Neutrophils # 10.8 H (1.3-7.7) k/uL Lymphocytes # 0.7 L (1.0-4.8) k/uL Monocytes # 0.5 (0-1.0) k/uL Eosinophils # 0.2 (0-0.7) k/uL Basophils # 0.1 (0-0.2) k/uL Macrocytosis Slight PT (9.0-12.0) sec INR (<1.2) APTT (22.0-30.0) sec Sodium 139 (137-145) mmol/L Potassium 3.9 (3.5-5.1) mmol/L Chloride 101 (98-107) mmol/L Carbon Dioxide 27 (22-30) mmol/L Anion Gap 11 mmol/L BUN 30 H (9-20) mg/dL Creatinine 1.02 (0.66-1.25) mg/dL Est GFR (CKD-EPI)AfAm 86 (>60 ml/min/1.73 sqM) Est GFR (CKD-EPI)NonAf 74 (>60 ml/min/1.73 sqM) Glucose 161 H (74-99) mg/dL Calcium 9.9 (8.4-10.2) mg/dL Magnesium 1.7 (1.6-2.3) mg/dL Total Bilirubin 1.1 (0.2-1.3) mg/dL AST 13 L (17-59) U/L ALT 19 L (21-72) U/L Alkaline Phosphatase 71 (38-126) U/L Troponin I (0.000-0.034) ng/mL NT-Pro-B Natriuret Pep 198 pg/mL Total Protein 6.4 (6.3-8.2) g/dL Albumin 3.4 L (3.5-5.0) g/dL 10/13/18 10/13/18 Range/Units 10:02 10:02 WBC (3.8-10.6) k/uL RBC (4.30-5.90) m/uL Hgb (13.0-17.5) gm/dL Hct (39.0-53.0) % MCV (80.0-100.0) fL MCH (25.0-35.0) pg MCHC (31.0-37.0) g/dL RDW (11.5-15.5) % Plt Count (150-450) k/uL Neutrophils % % Lymphocytes % % Monocytes % % Eosinophils % % Basophils % % Neutrophils # (1.3-7.7) k/uL Lymphocytes # (1.0-4.8) k/uL Monocytes # (0-1.0) k/uL Eosinophils # (0-0.7) k/uL Basophils # (0-0.2) k/uL Macrocytosis PT 13.0 H (9.0-12.0) sec INR 1.3 H (<1.2) APTT 28.2 (22.0-30.0) sec Sodium (137-145) mmol/L Potassium (3.5-5.1) mmol/L Chloride (98-107) mmol/L Carbon Dioxide (22-30) mmol/L Anion Gap mmol/L BUN (9-20) mg/dL Creatinine (0.66-1.25) mg/dL Est GFR (CKD-EPI)AfAm (>60 ml/min/1.73 sqM) Est GFR (CKD-EPI)NonAf (>60 ml/min/1.73 sqM) Glucose (74-99) mg/dL Calcium (8.4-10.2) mg/dL Magnesium (1.6-2.3) mg/dL Total Bilirubin (0.2-1.3) mg/dL AST (17-59) U/L ALT (21-72) U/L Alkaline Phosphatase (38-126) U/L Troponin I <0.012 (0.000-0.034) ng/mL NT-Pro-B Natriuret Pep pg/mL Total Protein (6.3-8.2) g/dL Albumin (3.5-5.0) g/dL Disposition Clinical Impression: Atrial fibrillation Disposition: HOME SELF-CARE Condition: Good Instructions (If sedation given, give patient instructions): A-fib (Atrial Fibrillation) (ED) Additional Instructions: Please continue to monitor patient. If patient has any worsening symptoms then return to ED. Is patient prescribed a controlled substance at d/c from ED?: No Referrals: Philippe Barbosa DO [Primary Care Provider] - 1-2 days Time of Disposition: 12:08
[2018-10-13 10:23] LABS: Basophils # (A) 0.1 k/uL (0-0.2); Basophils % (A) 0 %; Eosinophils # (A) 0.2 k/uL (0-0.7); Eosinophils % (A) 2 %; HCT 44.5 % (39.0-53.0); HGB 14.6 gm/dL (13.0-17.5); Lymphocytes # (A) 0.7 k/uL (1.0-4.8); Lymphocytes % (A) 5 %; MCH 33.9 pg (25.0-35.0); MCHC 32.9 g/dL (31.0-37.0); Macrocytosis Slight; Monocytes # (A) 0.5 k/uL (0-1.0); Monocytes % (A) 4 %; Neutrophils # (A) 10.8 k/uL (1.3-7.7); Neutrophils % (A) 88 %; Platelet Count 129 k/uL (150-450); RBC 4.32 m/uL (4.30-5.90); RDW 13.9 % (11.5-15.5); WBC 12.3 k/uL (3.8-10.6)
[2018-10-13] MEDS ORDERED: SODIUM CHLORIDE 0.9% 500 ML 500 ML IV STA (10:23)
[2018-10-13 10:30] VITALS: RESP 18
[2018-10-13 10:41] LABS: INR 1.3 (<1.2); Partial Thromboplastin Time 28.2 sec (22.0-30.0)
--- NOTE | 2018-10-13 10:49 | XR ---
EXAMINATION TYPE: XR chest 2V DATE OF EXAM: 10/13/2018 HISTORY: Chest Pain. REFERENCE: Previous study dated 10/17/2017. FINDINGS: There has been a midline sternotomy. The heart is enlarged. There is vascular congestion an d subtle interstitial change. Pleural spaces appear clear. IMPRESSION: I CANNOT EXCLUDE A MILD DEGREE OF HEART FAILURE.
[2018-10-13 11:00] LABS: Albumin 3.4 g/dL (3.5-5.0); Calcium 9.9 mg/dL (8.4-10.2); Magnesium 1.7 mg/dL (1.6-2.3); Potassium 3.9 mmol/L (3.5-5.1); Total Bilirubin 1.1 mg/dL (0.2-1.3); Total Protein 6.4 g/dL (6.3-8.2)
[2018-10-13 12:47] VITALS: BP 138/88; PULSE 99; TEMP 98.2
== END 2018-10-13 12:40 | disposition home or self-care (01) ==
LOC: EC 09:36
DX: I48.91 Unspecified atrial fibrillation (principal); I25.2 Old myocardial infarction; K21.9 Gastro-esophageal reflux disease without esophagitis; E78.5 Hyperlipidemia, unspecified; I11.0 Hypertensive heart disease with heart failure; I50.9 Heart failure, unspecified; E11.40 Type 2 diabetes mellitus with diabetic neuropathy, unspecified; M19.90 Unspecified osteoarthritis, unspecified site; Z79.4 Long term (current) use of insulin; Z79.899 Other long term (current) drug therapy; Z88.5 Allergy status to narcotic agent; Z88.1 Allergy status to other antibiotic agents; Z88.0 Allergy status to penicillin; Z88.2 Allergy status to sulfonamides; Z88.8 Allergy status to other drugs, medicaments and biological substances; Z91.040 Latex allergy status; Z91.048 Other nonmedicinal substance allergy status; Z95.1 Presence of aortocoronary bypass graft; Z95.5 Presence of coronary angioplasty implant and graft; Z96.643 Presence of artificial hip joint, bilateral; Z87.891 Personal history of nicotine dependence
CPT/HCPCS: 36415; 71046; 80053; 83735; 83880; 84484; 85025; 85610; 85730; 93005; 96360; 96361; 99285